=== PATIENT | male | born 1945 | race Caucasian/White ===

== ENCOUNTER 2019-06-14 09:16 | Inpatient (IN) ==
[2019-06-14] MEDS ORDERED: Ipratropium/Albuterol Neb 3 ML IH PRN (11:22)
[2019-06-14] MEDS: Furosemide 40 MG TABLET PO SCH ×2 (12:29→15:35)
[2019-06-14] MEDS: Gabapentin 300 MG CAPSULE PO SCH ×3 (12:30→20:23)
[2019-06-14] MEDS: metOLazone 5 MG TABLET PO SCH (12:31)
[2019-06-14] MEDS: Metoprolol XL (24 HR) Succ 50 MG TAB.ER.24H PO SCH ×2 (12:34→20:23)
[2019-06-14] MEDS: Fenofibrate 54 MG TABLET PO SCH (12:34)
[2019-06-14] MEDS: tiZANidine 4 MG TABLET PO PRN (12:34)
[2019-06-14] MEDS: Lisinopril 20 MG TABLET PO SCH (20:23)
[2019-06-14] MEDS: Apixaban 5 MG TABLET PO SCH (20:23)
[2019-06-15 06:38] LABS: Hematocrit 41.7 % (37.5-50.1); Hemoglobin 13.3 g/dL (12.9-16.9); Mean Corpuscular HGB Conc 31.9 g/dL (31.6-35.5); Mean Corpuscular Hemoglobin 32.5 pg (28.0-33.3); Platelet Count 311 K/mcL (140-400); Red Blood Count 4.09 M/mcL (4.19-5.50); Red Cell Distribution Width 13.4 % (11.5-14.5); White Blood Count 9.2 K/mcL (4.3-11.1)
[2019-06-15 06:56] LABS: Calcium 9.8 mg/dL (8.6-10.3); Potassium 4.3 mEq/L (3.5-5.1)
[2019-06-15] MEDS: Fenofibrate 54 MG TABLET PO SCH (09:06)
[2019-06-15] MEDS: metOLazone 5 MG TABLET PO SCH (09:07)
[2019-06-15] MEDS: Cholecalciferol (D-3) 1,000 UNIT (25MCG) TABLET PO SCH (09:07)
[2019-06-15] MEDS: Lisinopril 20 MG TABLET PO SCH ×2 (09:08→19:59)
[2019-06-15] MEDS: Apixaban 5 MG TABLET PO SCH ×2 (09:08→19:59)
[2019-06-15] MEDS: Gabapentin 300 MG CAPSULE PO SCH ×3 (09:08→19:58)
[2019-06-15] MEDS: Metoprolol XL (24 HR) Succ 50 MG TAB.ER.24H PO SCH ×2 (09:08→19:58)
[2019-06-15] MEDS: Furosemide 40 MG TABLET PO SCH ×2 (09:08→17:59)
[2019-06-16] MEDS: tiZANidine 4 MG TABLET PO PRN ×2 (02:54→14:03)
[2019-06-16] MEDS: metOLazone 5 MG TABLET PO SCH (08:55)
[2019-06-16] MEDS: Metoprolol XL (24 HR) Succ 50 MG TAB.ER.24H PO SCH ×2 (08:55→19:53)
[2019-06-16] MEDS: Lisinopril 20 MG TABLET PO SCH ×2 (08:56→19:53)
[2019-06-16] MEDS: Fenofibrate 54 MG TABLET PO SCH (08:56)
[2019-06-16] MEDS: Gabapentin 300 MG CAPSULE PO SCH ×3 (08:56→19:53)
[2019-06-16] MEDS: Apixaban 5 MG TABLET PO SCH ×2 (08:56→19:53)
[2019-06-16] MEDS: Cholecalciferol (D-3) 1,000 UNIT (25MCG) TABLET PO SCH (08:57)
[2019-06-16] MEDS: Furosemide 40 MG TABLET PO SCH ×2 (08:57→16:40)
[2019-06-17] MEDS: tiZANidine 4 MG TABLET PO PRN ×2 (03:35→21:15)
[2019-06-17] MEDS: metOLazone 5 MG TABLET PO SCH (05:59)
[2019-06-17] MEDS: Furosemide 40 MG TABLET PO SCH ×2 (09:53→16:21)
[2019-06-17] MEDS: Fenofibrate 54 MG TABLET PO SCH (09:53)
[2019-06-17] MEDS: Apixaban 5 MG TABLET PO SCH ×2 (09:53→21:15)
[2019-06-17] MEDS: Gabapentin 300 MG CAPSULE PO SCH ×3 (09:53→21:15)
[2019-06-17] MEDS: Metoprolol XL (24 HR) Succ 50 MG TAB.ER.24H PO SCH ×2 (09:54→21:15)
[2019-06-17] MEDS: Cholecalciferol (D-3) 1,000 UNIT (25MCG) TABLET PO SCH (09:55)
[2019-06-17 10:20] LABS: Bilirubin,Urine Negative (Negative); Blood,Urine Negative (Negative); Clarity,Urine Clear (Clear); Color,Urine Yellow (Yellow); Glucose,Urine (UA) Normal (Normal); Ketones,Urine Negative (Negative); Leukocyte Esterase,Urine Negative (Negative); Nitrite,Urine Negative (Negative); PH,Urine 5.5 pH Units (5.0-8.0); Protein,Urine Negative (Neg-Trace); Specific Gravity,Urine 1.025 (1.010-1.025); Urobilinogen,Urine Normal (Normal)
[2019-06-17] MEDS: Lisinopril 20 MG TABLET PO SCH ×2 (11:55→21:15)
[2019-06-18] MEDS ORDERED: *HR* OxyCODONE Immed Rel 5 MG TABLET PO ONE (03:20)
[2019-06-18 05:06] LABS: Hematocrit 40.5 % (37.5-50.1); Hemoglobin 12.9 g/dL (12.9-16.9); Mean Corpuscular HGB Conc 31.9 g/dL (31.6-35.5); Mean Corpuscular Hemoglobin 32.8 pg (28.0-33.3); Mean Corpuscular Volume 103.1 fL (83.0-100.0); Mean Platelet Volume 9.8 fL (9.4-12.4); Platelet Count 296 K/mcL (140-400); Red Blood Count 3.93 M/mcL (4.19-5.50); Red Cell Distribution Width 13.4 % (11.5-14.5); White Blood Count 10.9 K/mcL (4.3-11.1)
[2019-06-18] MEDS: metOLazone 5 MG TABLET PO SCH (06:45)
[2019-06-18] MEDS: Metoprolol XL (24 HR) Succ 50 MG TAB.ER.24H PO SCH ×2 (07:48→20:19)
[2019-06-18] MEDS: Furosemide 40 MG TABLET PO SCH ×2 (07:48→16:53)
[2019-06-18] MEDS: Fenofibrate 54 MG TABLET PO SCH (07:48)
[2019-06-18] MEDS: Apixaban 5 MG TABLET PO SCH ×2 (07:48→20:19)
[2019-06-18] MEDS: Gabapentin 300 MG CAPSULE PO SCH ×3 (07:48→20:19)
[2019-06-18] MEDS: Lisinopril 20 MG TABLET PO SCH (07:49)
[2019-06-18] MEDS: Cholecalciferol (D-3) 1,000 UNIT (25MCG) TABLET PO SCH (07:49)
[2019-06-18 07:53] LABS: Calcium 9.8 mg/dL (8.6-10.3); Potassium 4.2 mEq/L (3.5-5.1)
[2019-06-19] MEDS: metOLazone 5 MG TABLET PO SCH (06:09)
[2019-06-19 06:51] LABS: Hematocrit 41.9 % (37.5-50.1); Hemoglobin 13.6 g/dL (12.9-16.9); Mean Corpuscular HGB Conc 32.5 g/dL (31.6-35.5); Mean Corpuscular Hemoglobin 33.3 pg (28.0-33.3); Mean Corpuscular Volume 102.4 fL (83.0-100.0); Mean Platelet Volume 9.9 fL (9.4-12.4); Platelet Count 292 K/mcL (140-400); Red Blood Count 4.09 M/mcL (4.19-5.50); Red Cell Distribution Width 13.5 % (11.5-14.5); White Blood Count 9.4 K/mcL (4.3-11.1)
[2019-06-19 07:14] LABS: Calcium 9.9 mg/dL (8.6-10.3); Potassium 4.2 mEq/L (3.5-5.1)
[2019-06-19] MEDS: Gabapentin 300 MG CAPSULE PO SCH ×3 (09:39→21:49)
[2019-06-19] MEDS: Apixaban 5 MG TABLET PO SCH ×2 (09:39→21:49)
[2019-06-19] MEDS: Cholecalciferol (D-3) 1,000 UNIT (25MCG) TABLET PO SCH (09:39)
[2019-06-19] MEDS: tiZANidine 4 MG TABLET PO PRN (09:39)
[2019-06-19] MEDS: Metoprolol XL (24 HR) Succ 50 MG TAB.ER.24H PO SCH ×2 (09:39→21:49)
[2019-06-19] MEDS: Furosemide 40 MG TABLET PO SCH (09:39)
[2019-06-19] MEDS: Fenofibrate 54 MG TABLET PO SCH (09:39)
[2019-06-19] MEDS: acetaZOLAMIDE 250 MG TABLET PO SCH ×2 (12:21→21:49)
[2019-06-20 06:00] LABS: Calcium 9.7 mg/dL (8.6-10.3); Potassium 3.9 mEq/L (3.5-5.1)
[2019-06-20] MEDS: Gabapentin 300 MG CAPSULE PO SCH ×3 (09:09→21:28)
[2019-06-20] MEDS: Fenofibrate 54 MG TABLET PO SCH (09:09)
[2019-06-20] MEDS: Apixaban 5 MG TABLET PO SCH ×2 (09:09→21:20)
[2019-06-20] MEDS: Cholecalciferol (D-3) 1,000 UNIT (25MCG) TABLET PO SCH (09:09)
[2019-06-20] MEDS: acetaZOLAMIDE 250 MG TABLET PO SCH ×2 (09:09→21:20)
[2019-06-20] MEDS: Metoprolol XL (24 HR) Succ 50 MG TAB.ER.24H PO SCH ×2 (09:09→21:20)
[2019-06-20] MEDS: Preparation H Ointment 30 GM TUBE RC SCH ×3 (10:07→21:21)
[2019-06-21] MEDS: acetaZOLAMIDE 250 MG TABLET PO SCH ×2 (08:08→21:56)
[2019-06-21] MEDS: Fenofibrate 54 MG TABLET PO SCH (08:08)
[2019-06-21] MEDS: Gabapentin 300 MG CAPSULE PO SCH ×3 (08:08→21:56)
[2019-06-21] MEDS: Apixaban 5 MG TABLET PO SCH ×2 (08:08→21:56)
[2019-06-21] MEDS: Metoprolol XL (24 HR) Succ 50 MG TAB.ER.24H PO SCH ×2 (08:09→21:56)
[2019-06-21] MEDS: Cholecalciferol (D-3) 1,000 UNIT (25MCG) TABLET PO SCH (08:09)
[2019-06-21] MEDS: Preparation H Ointment 30 GM TUBE RC SCH ×3 (08:11→21:58)
[2019-06-21 09:30] LABS: Hematocrit 41.5 % (37.5-50.1); Hemoglobin 13.1 g/dL (12.9-16.9); Mean Corpuscular HGB Conc 31.6 g/dL (31.6-35.5); Mean Corpuscular Hemoglobin 32.8 pg (28.0-33.3); Mean Platelet Volume 10.1 fL (9.4-12.4); Platelet Count 262 K/mcL (140-400); Red Blood Count 3.99 M/mcL (4.19-5.50); Red Cell Distribution Width 13.5 % (11.5-14.5); White Blood Count 8.8 K/mcL (4.3-11.1)
[2019-06-21 09:46] LABS: Calcium 9.8 mg/dL (8.6-10.3); Potassium 3.8 mEq/L (3.5-5.1)
[2019-06-21 21:38] LABS: Sodium, Urine 97.3 mEq/L
[2019-06-22] MEDS: acetaZOLAMIDE 250 MG TABLET PO SCH (08:14)
[2019-06-22] MEDS: Fenofibrate 54 MG TABLET PO SCH (08:14)
[2019-06-22] MEDS: Cholecalciferol (D-3) 1,000 UNIT (25MCG) TABLET PO SCH (08:15)
[2019-06-22] MEDS: Gabapentin 300 MG CAPSULE PO SCH ×3 (08:15→20:28)
[2019-06-22] MEDS: Preparation H Ointment 30 GM TUBE RC SCH ×3 (08:15→20:28)
[2019-06-22] MEDS: Apixaban 5 MG TABLET PO SCH ×2 (08:15→20:28)
[2019-06-22] MEDS: Metoprolol XL (24 HR) Succ 50 MG TAB.ER.24H PO SCH (08:15)
[2019-06-22] MEDS ORDERED: Furosemide 40 MG TABLET PO SCH (09:00)
[2019-06-22] MEDS ORDERED: 0.9 % Sodium Chloride 500 ML IVC ONE (09:23)
[2019-06-22 10:28] LABS: Hematocrit 44.8 % (37.5-50.1); Hemoglobin 13.9 g/dL (12.9-16.9); Mean Corpuscular Hemoglobin 32.7 pg (28.0-33.3); Mean Corpuscular Volume 105.4 fL (83.0-100.0); Mean Platelet Volume 9.7 fL (9.4-12.4); Platelet Count 254 K/mcL (140-400); Red Blood Count 4.25 M/mcL (4.19-5.50); Red Cell Distribution Width 13.4 % (11.5-14.5); White Blood Count 9.5 K/mcL (4.3-11.1)
[2019-06-22 10:48] LABS: Calcium 9.7 mg/dL (8.6-10.3); Potassium 3.8 mEq/L (3.5-5.1)
[2019-06-22 13:44] LABS: Adenovirus Not Detected (Not Detect); Bordetella Pertussis Not Detected (Not Detect); Chlamydophila pneumoniae Not Detected (Not Detect); Coronavirus 229E Not Detected (Not Detect); Coronavirus HKU1 Not Detected (Not Detect); Coronavirus NL63 Not Detected (Not Detect); Coronavirus OC43 Not Detected (Not Detect); Human Metapneumovirus Not Detected (Not Detect); Human Rhinovirus/Enterovirus Not Detected (Not Detect); Influenza A Subtype 2009 H1 Not Detected (Not Detect); Influenza B Not Detected (Not Detect); Mycoplasma pneumoniae Not Detected (Not Detect); Parainfluenza Virus 1 Not Detected (Not Detect); Parainfluenza Virus 2 Not Detected (Not Detect); Parainfluenza Virus 3 Not Detected (Not Detect); Parainfluenza Virus 4 Not Detected (Not Detect); Respiratory Syncytial Virus Not Detected (Not Detect)
[2019-06-23] MEDS: tiZANidine 4 MG TABLET PO PRN (05:07)
[2019-06-23 07:17] LABS: Hematocrit 40.6 % (37.5-50.1); Hemoglobin 12.6 g/dL (12.9-16.9); Mean Corpuscular Hemoglobin 32.1 pg (28.0-33.3); Mean Corpuscular Volume 103.6 fL (83.0-100.0); Mean Platelet Volume 10.3 fL (9.4-12.4); Platelet Count 213 K/mcL (140-400); Red Blood Count 3.92 M/mcL (4.19-5.50); Red Cell Distribution Width 13.3 % (11.5-14.5); White Blood Count 7.9 K/mcL (4.3-11.1)
[2019-06-23 07:27] LABS: Calcium 9.4 mg/dL (8.6-10.3); Potassium 4.1 mEq/L (3.5-5.1)
[2019-06-23] MEDS: Fenofibrate 54 MG TABLET PO SCH (08:23)
[2019-06-23] MEDS: Apixaban 5 MG TABLET PO SCH ×2 (08:23→20:23)
[2019-06-23] MEDS: Cholecalciferol (D-3) 1,000 UNIT (25MCG) TABLET PO SCH (08:23)
[2019-06-23] MEDS: Gabapentin 300 MG CAPSULE PO SCH ×3 (08:23→20:23)
[2019-06-23] MEDS: Metoprolol XL (24 HR) Succ 50 MG TAB.ER.24H PO SCH (08:24)
[2019-06-23] MEDS: Preparation H Ointment 30 GM TUBE RC SCH ×3 (12:02→20:26)
[2019-06-24] MEDS: Preparation H Ointment 30 GM TUBE RC SCH ×3 (09:00→23:20)
[2019-06-24] MEDS: Metoprolol XL (24 HR) Succ 50 MG TAB.ER.24H PO SCH (09:00)
[2019-06-24] MEDS: Cholecalciferol (D-3) 1,000 UNIT (25MCG) TABLET PO SCH (09:00)
[2019-06-24] MEDS: Fenofibrate 54 MG TABLET PO SCH (09:00)
[2019-06-24] MEDS: Apixaban 5 MG TABLET PO SCH ×2 (09:00→20:09)
[2019-06-24] MEDS: Gabapentin 300 MG CAPSULE PO SCH ×3 (09:00→20:09)
[2019-06-24] MEDS: tiZANidine 4 MG TABLET PO PRN (17:52)
[2019-06-25] MEDS: Acetaminophen 325 MG TABLET PO PRN (06:33)
[2019-06-25] MEDS: Fenofibrate 54 MG TABLET PO SCH (08:56)
[2019-06-25] MEDS: Apixaban 5 MG TABLET PO SCH ×2 (08:56→20:29)
[2019-06-25] MEDS: tiZANidine 4 MG TABLET PO PRN (08:57)
[2019-06-25] MEDS: Metoprolol XL (24 HR) Succ 50 MG TAB.ER.24H PO SCH (08:57)
[2019-06-25] MEDS: Gabapentin 300 MG CAPSULE PO SCH ×3 (08:57→20:29)
[2019-06-25] MEDS: Cholecalciferol (D-3) 1,000 UNIT (25MCG) TABLET PO SCH (08:57)
[2019-06-25] MEDS: Preparation H Ointment 30 GM TUBE RC SCH ×2 (09:07→15:35)
[2019-06-25] MEDS: Furosemide 40 MG TABLET PO SCH (11:13)
[2019-06-26] MEDS: Preparation H Ointment 30 GM TUBE RC SCH ×3 (00:16→16:10)
[2019-06-26] MEDS: Acetaminophen 325 MG TABLET PO PRN (00:25)
[2019-06-26 05:41] LABS: Hematocrit 40.7 % (37.5-50.1); Hemoglobin 12.8 g/dL (12.9-16.9); Mean Corpuscular HGB Conc 31.4 g/dL (31.6-35.5); Mean Corpuscular Hemoglobin 32.6 pg (28.0-33.3); Mean Corpuscular Volume 103.6 fL (83.0-100.0); Mean Platelet Volume 10.3 fL (9.4-12.4); Platelet Count 160 K/mcL (140-400); Red Blood Count 3.93 M/mcL (4.19-5.50); Red Cell Distribution Width 13.2 % (11.5-14.5); White Blood Count 7.8 K/mcL (4.3-11.1)
[2019-06-26 06:03] LABS: Calcium 9.3 mg/dL (8.6-10.3); Potassium 4.1 mEq/L (3.5-5.1)
[2019-06-26] MEDS: Metoprolol XL (24 HR) Succ 50 MG TAB.ER.24H PO SCH (09:07)
[2019-06-26] MEDS: Fenofibrate 54 MG TABLET PO SCH (09:07)
[2019-06-26] MEDS: Apixaban 5 MG TABLET PO SCH ×2 (09:08→19:58)
[2019-06-26] MEDS: Gabapentin 300 MG CAPSULE PO SCH ×3 (09:08→19:58)
[2019-06-26] MEDS: Furosemide 40 MG TABLET PO SCH (09:08)
[2019-06-26] MEDS: Cholecalciferol (D-3) 1,000 UNIT (25MCG) TABLET PO SCH (09:09)
[2019-06-26] MEDS: tiZANidine 4 MG TABLET PO PRN (20:02)
[2019-06-27] MEDS: Preparation H Ointment 30 GM TUBE RC SCH ×4 (00:32→21:31)
[2019-06-27] MEDS: Cholecalciferol (D-3) 1,000 UNIT (25MCG) TABLET PO SCH (09:55)
[2019-06-27] MEDS: Apixaban 5 MG TABLET PO SCH ×2 (09:55→21:31)
[2019-06-27] MEDS: Gabapentin 300 MG CAPSULE PO SCH ×3 (09:55→21:31)
[2019-06-27] MEDS: Furosemide 40 MG TABLET PO SCH (09:55)
[2019-06-27] MEDS: Metoprolol XL (24 HR) Succ 50 MG TAB.ER.24H PO SCH (09:55)
[2019-06-27] MEDS: Fenofibrate 54 MG TABLET PO SCH (09:56)
[2019-06-27] MEDS: tiZANidine 4 MG TABLET PO PRN ×2 (15:36→23:37)
[2019-06-27] MEDS: Acetaminophen 325 MG TABLET PO PRN (21:31)
[2019-06-28] MEDS: Furosemide 40 MG TABLET PO SCH (08:30)
[2019-06-28] MEDS: Apixaban 5 MG TABLET PO SCH ×2 (08:30→20:43)
[2019-06-28] MEDS: Metoprolol XL (24 HR) Succ 50 MG TAB.ER.24H PO SCH (08:30)
[2019-06-28] MEDS: Cholecalciferol (D-3) 1,000 UNIT (25MCG) TABLET PO SCH (08:30)
[2019-06-28] MEDS: Fenofibrate 54 MG TABLET PO SCH (08:30)
[2019-06-28] MEDS: Gabapentin 300 MG CAPSULE PO SCH ×3 (08:30→20:43)
[2019-06-28] MEDS: Preparation H Ointment 30 GM TUBE RC SCH ×2 (08:31→15:05)
[2019-06-28] MEDS: tiZANidine 4 MG TABLET PO PRN (20:44)
[2019-06-29] MEDS: Acetaminophen 325 MG TABLET PO PRN (03:27)
[2019-06-29] MEDS: Preparation H Ointment 30 GM TUBE RC SCH ×4 (04:00→20:59)
[2019-06-29 07:01] LABS: Hematocrit 40.8 % (37.5-50.1); Mean Corpuscular HGB Conc 31.9 g/dL (31.6-35.5); Mean Corpuscular Hemoglobin 32.7 pg (28.0-33.3); Mean Corpuscular Volume 102.8 fL (83.0-100.0); Mean Platelet Volume 10.4 fL (9.4-12.4); Platelet Count 152 K/mcL (140-400); Red Blood Count 3.97 M/mcL (4.19-5.50); Red Cell Distribution Width 13.5 % (11.5-14.5); White Blood Count 7.5 K/mcL (4.3-11.1)
[2019-06-29 07:45] LABS: Calcium 9.6 mg/dL (8.6-10.3); Potassium 3.9 mEq/L (3.5-5.1)
[2019-06-29] MEDS: tiZANidine 4 MG TABLET PO PRN (08:44)
[2019-06-29] MEDS: Gabapentin 300 MG CAPSULE PO SCH ×3 (08:44→20:58)
[2019-06-29] MEDS: Metoprolol XL (24 HR) Succ 50 MG TAB.ER.24H PO SCH (08:44)
[2019-06-29] MEDS: Apixaban 5 MG TABLET PO SCH ×2 (08:44→20:58)
[2019-06-29] MEDS: Cholecalciferol (D-3) 1,000 UNIT (25MCG) TABLET PO SCH (08:44)
[2019-06-29] MEDS: Fenofibrate 54 MG TABLET PO SCH (08:45)
[2019-06-29] MEDS ORDERED: Furosemide 20 MG TABLET PO ONE (08:55)
[2019-06-29] MEDS ORDERED: Furosemide 40 MG TABLET PO SCH (09:00)
[2019-06-30] MEDS: tiZANidine 4 MG TABLET PO PRN (01:20)
[2019-06-30] MEDS: Fenofibrate 54 MG TABLET PO SCH (09:23)
[2019-06-30] MEDS: Furosemide 20 MG TABLET PO SCH (09:24)
[2019-06-30] MEDS: Metoprolol XL (24 HR) Succ 50 MG TAB.ER.24H PO SCH (09:24)
[2019-06-30] MEDS: Cholecalciferol (D-3) 1,000 UNIT (25MCG) TABLET PO SCH (09:24)
[2019-06-30] MEDS: Gabapentin 300 MG CAPSULE PO SCH ×3 (09:24→20:51)
[2019-06-30] MEDS: Apixaban 5 MG TABLET PO SCH (11:53)
[2019-06-30] MEDS: Preparation H Ointment 30 GM TUBE RC SCH ×3 (11:54→20:51)
[2019-06-30] MEDS: Acetaminophen 325 MG TABLET PO PRN (14:11)
[2019-07-01] MEDS: Furosemide 20 MG TABLET PO SCH (08:27)
[2019-07-01] MEDS: Fenofibrate 54 MG TABLET PO SCH (08:27)
[2019-07-01] MEDS: Metoprolol XL (24 HR) Succ 50 MG TAB.ER.24H PO SCH (08:28)
[2019-07-01] MEDS: Preparation H Ointment 30 GM TUBE RC SCH ×3 (08:28→20:16)
[2019-07-01] MEDS: Cholecalciferol (D-3) 1,000 UNIT (25MCG) TABLET PO SCH (08:28)
[2019-07-01] MEDS: Gabapentin 300 MG CAPSULE PO SCH ×3 (08:28→20:16)
[2019-07-01] MEDS: tiZANidine 4 MG TABLET PO PRN (16:11)
[2019-07-01] MEDS: Acetaminophen 325 MG TABLET PO PRN (16:11)
[2019-07-02] MEDS: Acetaminophen 325 MG TABLET PO PRN ×2 (00:43→21:49)
[2019-07-02] MEDS: Metoprolol XL (24 HR) Succ 50 MG TAB.ER.24H PO SCH (07:51)
[2019-07-02] MEDS: Fenofibrate 54 MG TABLET PO SCH (07:51)
[2019-07-02] MEDS: Furosemide 20 MG TABLET PO SCH (07:52)
[2019-07-02] MEDS: Cholecalciferol (D-3) 1,000 UNIT (25MCG) TABLET PO SCH (07:52)
[2019-07-02] MEDS: Gabapentin 300 MG CAPSULE PO SCH ×3 (07:52→21:50)
[2019-07-02] MEDS: Preparation H Ointment 30 GM TUBE RC SCH ×3 (17:19→21:50)
[2019-07-02 18:02] VITALS: BP 126/62
[2019-07-02] MEDS: tiZANidine 4 MG TABLET PO PRN (21:50)
== END 2019-07-03 05:30 | disposition short-term general hospital (02) | DRG 945 ==
LOC: INPPIK 09:33
PROVIDERS: ADMIT Family Medicine; ATTEND Family Medicine

== ENCOUNTER 2019-07-09 16:11 | Inpatient (IN) ==
[2019-07-09] MEDS ORDERED: Preparation H Ointment 30 GM TUBE RC PRN (18:12)
[2019-07-09] MEDS ORDERED: Ipratropium/Albuterol Neb 3 ML IH PRN (19:25)
[2019-07-09] MEDS: Gabapentin 300 MG CAPSULE PO SCH (20:13)
[2019-07-09] MEDS: Apixaban 5 MG TABLET PO SCH (20:13)
[2019-07-09] MEDS: Metoprolol XL (24 HR) Succ 50 MG TAB.ER.24H PO SCH (20:13)
[2019-07-09] MEDS: Lisinopril 20 MG TABLET PO SCH (20:13)
[2019-07-09] MEDS: *HR* OxyCODONE/APAP 5/325 TABLET PO PRN (20:13)
[2019-07-10 07:16] LABS: Basophils % 0.4 %; Eosinophils # 0.4 K/mcL (0.0-0.6); Eosinophils % 4.3 %; Hematocrit 29.3 % (37.5-50.1); Hemoglobin 9.2 g/dL (12.9-16.9); Immature Granulocytes % 0.6 % (0-4); Lymphocytes # 0.7 K/mcL (0.6-4.6); Lymphocytes % 7.7 %; Mean Corpuscular HGB Conc 31.4 g/dL (31.6-35.5); Mean Corpuscular Hemoglobin 32.4 pg (28.0-33.3); Mean Corpuscular Volume 103.2 fL (83.0-100.0); Mean Platelet Volume 9.5 fL (9.4-12.4); Monocytes # 0.5 K/mcL (0.0-1.3); Monocytes % 4.7 %; Neutrophils # 7.8 K/mcL (1.6-8.9); Platelet Count 304 K/mcL (140-400); Red Blood Count 2.84 M/mcL (4.19-5.50); Red Cell Distribution Width 14.2 % (11.5-14.5); Segmented Neutrophils % 82.3 %; White Blood Count 9.5 K/mcL (4.3-11.1)
[2019-07-10 07:46] LABS: Activated Partial Thrombo Time 31.4 Seconds (26.0-36.0); INR 1.4; Prothrombin Time 15.6 Seconds (9.4-12.1)
[2019-07-10 07:52] LABS: eGFR For African Americans > 60 (> 60); eGFR For Non-African Americans 60 (> 60)
[2019-07-10] MEDS: Gabapentin 300 MG CAPSULE PO SCH ×3 (08:49→21:06)
[2019-07-10] MEDS: Furosemide 40 MG TABLET PO SCH ×2 (08:49→17:08)
[2019-07-10] MEDS: Lisinopril 20 MG TABLET PO SCH (08:50)
[2019-07-10] MEDS: Cholecalciferol (D-3) 1,000 UNIT (25MCG) TABLET PO SCH (08:50)
[2019-07-10] MEDS: metOLazone 5 MG TABLET PO SCH (08:50)
[2019-07-10] MEDS: Fenofibrate 54 MG TABLET PO SCH (08:51)
[2019-07-10] MEDS: Metoprolol XL (24 HR) Succ 50 MG TAB.ER.24H PO SCH ×2 (08:51→21:06)
[2019-07-10] MEDS: Apixaban 5 MG TABLET PO SCH ×2 (08:51→21:07)
[2019-07-10] MEDS ORDERED: Preparation H Ointment 30 GM TUBE RC PRN (13:59)
[2019-07-11] MEDS: metOLazone 5 MG TABLET PO SCH (09:09)
[2019-07-11] MEDS: *HR* OxyCODONE/APAP 5/325 TABLET PO PRN (10:19)
[2019-07-11] MEDS: Cholecalciferol (D-3) 1,000 UNIT (25MCG) TABLET PO SCH (10:20)
[2019-07-11] MEDS: Furosemide 40 MG TABLET PO SCH ×2 (10:20→18:06)
[2019-07-11] MEDS: Fenofibrate 54 MG TABLET PO SCH (10:21)
[2019-07-11] MEDS: Gabapentin 300 MG CAPSULE PO SCH ×3 (10:21→20:33)
[2019-07-11] MEDS: Lisinopril 20 MG TABLET PO SCH (10:21)
[2019-07-11] MEDS: Metoprolol XL (24 HR) Succ 50 MG TAB.ER.24H PO SCH ×2 (10:21→20:34)
[2019-07-11] MEDS: Apixaban 5 MG TABLET PO SCH ×2 (10:23→20:34)
[2019-07-12] MEDS: Cholecalciferol (D-3) 1,000 UNIT (25MCG) TABLET PO SCH (10:35)
[2019-07-12] MEDS: Gabapentin 300 MG CAPSULE PO SCH ×3 (10:35→20:28)
[2019-07-12] MEDS: Furosemide 40 MG TABLET PO SCH ×3 (10:36→16:22)
[2019-07-12] MEDS: Metoprolol XL (24 HR) Succ 50 MG TAB.ER.24H PO SCH ×2 (10:36→20:28)
[2019-07-12] MEDS: Lisinopril 20 MG TABLET PO SCH (10:36)
[2019-07-12] MEDS: Fenofibrate 54 MG TABLET PO SCH (10:36)
[2019-07-12] MEDS: Apixaban 5 MG TABLET PO SCH ×2 (10:36→20:28)
[2019-07-12] MEDS: metOLazone 5 MG TABLET PO SCH (10:39)
[2019-07-13 05:44] LABS: Hematocrit 30.4 % (37.5-50.1); Hemoglobin 9.4 g/dL (12.9-16.9); Mean Corpuscular HGB Conc 30.9 g/dL (31.6-35.5); Mean Corpuscular Hemoglobin 31.8 pg (28.0-33.3); Mean Corpuscular Volume 102.7 fL (83.0-100.0); Mean Platelet Volume 8.8 fL (9.4-12.4); Platelet Count 378 K/mcL (140-400); Red Blood Count 2.96 M/mcL (4.19-5.50); Red Cell Distribution Width 14.1 % (11.5-14.5); White Blood Count 10.3 K/mcL (4.3-11.1)
[2019-07-13 06:12] LABS: Potassium 3.6 mEq/L (3.5-5.1)
[2019-07-13] MEDS: Gabapentin 300 MG CAPSULE PO SCH ×3 (09:43→20:01)
[2019-07-13] MEDS: Cholecalciferol (D-3) 1,000 UNIT (25MCG) TABLET PO SCH (09:43)
[2019-07-13] MEDS: Fenofibrate 54 MG TABLET PO SCH (09:43)
[2019-07-13] MEDS: Furosemide 40 MG TABLET PO SCH ×2 (09:44→18:32)
[2019-07-13] MEDS: Lisinopril 20 MG TABLET PO SCH (09:44)
[2019-07-13] MEDS: Metoprolol XL (24 HR) Succ 50 MG TAB.ER.24H PO SCH ×2 (09:44→20:01)
[2019-07-13] MEDS: Apixaban 5 MG TABLET PO SCH ×2 (09:44→20:01)
[2019-07-13] MEDS: metOLazone 5 MG TABLET PO SCH (09:53)
[2019-07-14] MEDS: Metoprolol XL (24 HR) Succ 50 MG TAB.ER.24H PO SCH ×2 (08:20→20:02)
[2019-07-14] MEDS: Gabapentin 300 MG CAPSULE PO SCH ×3 (08:20→20:01)
[2019-07-14] MEDS: Fenofibrate 54 MG TABLET PO SCH (08:21)
[2019-07-14] MEDS: metOLazone 5 MG TABLET PO SCH (08:22)
[2019-07-14] MEDS: Cholecalciferol (D-3) 1,000 UNIT (25MCG) TABLET PO SCH (08:22)
[2019-07-14] MEDS: Lisinopril 20 MG TABLET PO SCH (08:22)
[2019-07-14] MEDS: Furosemide 40 MG TABLET PO SCH (08:22)
[2019-07-14] MEDS: Apixaban 5 MG TABLET PO SCH ×2 (08:24→20:02)
[2019-07-14 11:16] LABS: Hematocrit 29.4 % (37.5-50.1); Hemoglobin 9.2 g/dL (12.9-16.9); Mean Corpuscular HGB Conc 31.3 g/dL (31.6-35.5); Mean Corpuscular Hemoglobin 32.2 pg (28.0-33.3); Mean Corpuscular Volume 102.8 fL (83.0-100.0); Mean Platelet Volume 8.7 fL (9.4-12.4); Platelet Count 426 K/mcL (140-400); Red Blood Count 2.86 M/mcL (4.19-5.50); White Blood Count 10.2 K/mcL (4.3-11.1)
[2019-07-14] MEDS: 0.9 % Sodium Chloride 1,000 ML IVC SCH ×2 (12:03→20:02)
[2019-07-14 12:40] LABS: Potassium 3.6 mEq/L (3.5-5.1)
[2019-07-14] MEDS: *HR* OxyCODONE/APAP 5/325 TABLET PO PRN (14:37)
[2019-07-15] MEDS: 0.9 % Sodium Chloride 1,000 ML IVC SCH (06:12)
[2019-07-15 09:46] LABS: Hematocrit 30.5 % (37.5-50.1); Hemoglobin 9.5 g/dL (12.9-16.9); Mean Corpuscular HGB Conc 31.1 g/dL (31.6-35.5); Mean Corpuscular Hemoglobin 32.1 pg (28.0-33.3); Mean Platelet Volume 9.3 fL (9.4-12.4); Platelet Count 429 K/mcL (140-400); Red Blood Count 2.96 M/mcL (4.19-5.50); Red Cell Distribution Width 13.8 % (11.5-14.5)
[2019-07-15 10:05] LABS: Potassium 3.5 mEq/L (3.5-5.1)
[2019-07-15] MEDS: Gabapentin 300 MG CAPSULE PO SCH ×3 (11:01→20:34)
[2019-07-15] MEDS: Fenofibrate 54 MG TABLET PO SCH (11:01)
[2019-07-15] MEDS: Cholecalciferol (D-3) 1,000 UNIT (25MCG) TABLET PO SCH (11:01)
[2019-07-15] MEDS: Apixaban 5 MG TABLET PO SCH ×2 (11:01→20:34)
[2019-07-15] MEDS: Metoprolol XL (24 HR) Succ 50 MG TAB.ER.24H PO SCH ×2 (11:02→20:34)
[2019-07-16 06:33] LABS: Hemoglobin 9.4 g/dL (12.9-16.9); Mean Corpuscular HGB Conc 29.4 g/dL (31.6-35.5); Mean Corpuscular Hemoglobin 31.5 pg (28.0-33.3); Mean Corpuscular Volume 107.4 fL (83.0-100.0); Mean Platelet Volume 9.2 fL (9.4-12.4); Platelet Count 428 K/mcL (140-400); Red Blood Count 2.98 M/mcL (4.19-5.50); Red Cell Distribution Width 13.9 % (11.5-14.5)
[2019-07-16 06:48] LABS: BUN/Creatinine Ratio 22 (6-26); Blood Urea Nitrogen 30 mg/dL (8-23); Calcium 9.2 mg/dL (8.6-10.3); Carbon Dioxide 40 mEq/L (23-29); Chloride 100 mEq/L (98-107); Glucose 97 mg/dL (70-105); Osmolality,Calculated 304 (280-300); Sodium 144 mEq/L (136-145); eGFR For African Americans > 60 (> 60); eGFR For Non-African Americans 50 (> 60)
[2019-07-16] MEDS: Cholecalciferol (D-3) 1,000 UNIT (25MCG) TABLET PO SCH (09:04)
[2019-07-16] MEDS: Gabapentin 300 MG CAPSULE PO SCH ×3 (09:04→19:57)
[2019-07-16] MEDS: *HR* OxyCODONE/APAP 5/325 TABLET PO PRN ×2 (09:04→18:52)
[2019-07-16] MEDS: Apixaban 5 MG TABLET PO SCH ×2 (09:04→19:57)
[2019-07-16] MEDS: Metoprolol XL (24 HR) Succ 50 MG TAB.ER.24H PO SCH ×2 (09:04→20:00)
[2019-07-16] MEDS: Fenofibrate 54 MG TABLET PO SCH (09:04)
[2019-07-16] MEDS: acetaZOLAMIDE 250 MG TABLET PO SCH ×2 (09:08→19:57)
[2019-07-17] MEDS: Fenofibrate 54 MG TABLET PO SCH (08:01)
[2019-07-17] MEDS: Cholecalciferol (D-3) 1,000 UNIT (25MCG) TABLET PO SCH (08:01)
[2019-07-17] MEDS: Gabapentin 300 MG CAPSULE PO SCH ×3 (08:02→19:59)
[2019-07-17] MEDS: Apixaban 5 MG TABLET PO SCH ×2 (08:03→20:00)
[2019-07-17] MEDS: acetaZOLAMIDE 250 MG TABLET PO SCH ×2 (08:04→19:59)
[2019-07-17] MEDS: Metoprolol XL (24 HR) Succ 50 MG TAB.ER.24H PO SCH ×2 (08:06→19:59)
[2019-07-17] MEDS: tiZANidine 4 MG TABLET PO PRN (08:17)
[2019-07-17] MEDS ORDERED: Furosemide 40 MG/4 ML VIAL IVP SCH (09:00)
[2019-07-17] MEDS: *HR* OxyCODONE/APAP 5/325 TABLET PO PRN (20:04)
[2019-07-18] MEDS: acetaZOLAMIDE 250 MG TABLET PO SCH ×2 (09:35→20:39)
[2019-07-18] MEDS: Gabapentin 300 MG CAPSULE PO SCH ×3 (09:35→20:38)
[2019-07-18] MEDS: Fenofibrate 54 MG TABLET PO SCH (09:35)
[2019-07-18] MEDS: Metoprolol XL (24 HR) Succ 50 MG TAB.ER.24H PO SCH ×2 (09:35→22:44)
[2019-07-18] MEDS: Cholecalciferol (D-3) 1,000 UNIT (25MCG) TABLET PO SCH (09:35)
[2019-07-18] MEDS: Apixaban 5 MG TABLET PO SCH ×2 (09:36→20:39)
[2019-07-18] MEDS: Furosemide 40 MG TABLET PO SCH (17:57)
[2019-07-18] MEDS: tiZANidine 4 MG TABLET PO PRN (18:05)
[2019-07-19 06:15] LABS: Hematocrit 30.6 % (37.5-50.1); Hemoglobin 9.2 g/dL (12.9-16.9); Mean Corpuscular HGB Conc 30.1 g/dL (31.6-35.5); Mean Corpuscular Hemoglobin 31.7 pg (28.0-33.3); Mean Corpuscular Volume 105.5 fL (83.0-100.0); Mean Platelet Volume 9.2 fL (9.4-12.4); Platelet Count 338 K/mcL (140-400); Red Cell Distribution Width 13.7 % (11.5-14.5); White Blood Count 7.2 K/mcL (4.3-11.1)
[2019-07-19 06:41] LABS: Calcium 9.4 mg/dL (8.6-10.3); Potassium 4.2 mEq/L (3.5-5.1)
[2019-07-19] MEDS: Fenofibrate 54 MG TABLET PO SCH (08:39)
[2019-07-19] MEDS: Gabapentin 300 MG CAPSULE PO SCH ×3 (08:40→19:57)
[2019-07-19] MEDS: acetaZOLAMIDE 250 MG TABLET PO SCH ×2 (08:41→19:57)
[2019-07-19] MEDS: Cholecalciferol (D-3) 1,000 UNIT (25MCG) TABLET PO SCH (08:41)
[2019-07-19] MEDS: Apixaban 5 MG TABLET PO SCH ×2 (08:44→19:58)
[2019-07-19] MEDS: Metoprolol XL (24 HR) Succ 50 MG TAB.ER.24H PO SCH ×2 (08:58→19:57)
[2019-07-19] MEDS: Furosemide 40 MG TABLET PO SCH ×2 (09:04→15:35)
[2019-07-19] MEDS: *HR* OxyCODONE/APAP 5/325 TABLET PO PRN (15:39)
[2019-07-20] MEDS: Fenofibrate 54 MG TABLET PO SCH (08:24)
[2019-07-20] MEDS: Cholecalciferol (D-3) 1,000 UNIT (25MCG) TABLET PO SCH (08:24)
[2019-07-20] MEDS: Apixaban 5 MG TABLET PO SCH ×2 (08:25→20:36)
[2019-07-20] MEDS: Furosemide 40 MG TABLET PO SCH ×2 (08:25→15:55)
[2019-07-20] MEDS: acetaZOLAMIDE 250 MG TABLET PO SCH ×2 (08:25→20:36)
[2019-07-20] MEDS: Metoprolol XL (24 HR) Succ 50 MG TAB.ER.24H PO SCH ×2 (08:25→20:36)
[2019-07-20] MEDS: Gabapentin 300 MG CAPSULE PO SCH ×3 (08:25→20:36)
[2019-07-21] MEDS: Gabapentin 300 MG CAPSULE PO SCH ×4 (07:46→20:01)
[2019-07-21] MEDS: Fenofibrate 54 MG TABLET PO SCH (07:46)
[2019-07-21] MEDS: acetaZOLAMIDE 250 MG TABLET PO SCH ×2 (07:46→20:02)
[2019-07-21] MEDS: Metoprolol XL (24 HR) Succ 50 MG TAB.ER.24H PO SCH ×2 (07:47→20:03)
[2019-07-21] MEDS: Apixaban 5 MG TABLET PO SCH ×2 (07:48→20:02)
[2019-07-21] MEDS: Furosemide 40 MG TABLET PO SCH ×2 (07:48→16:53)
[2019-07-21] MEDS: Cholecalciferol (D-3) 1,000 UNIT (25MCG) TABLET PO SCH (07:48)
[2019-07-21 08:09] LABS: Hematocrit 32.9 % (37.5-50.1); Mean Corpuscular HGB Conc 30.4 g/dL (31.6-35.5); Mean Corpuscular Hemoglobin 32.1 pg (28.0-33.3); Mean Corpuscular Volume 105.4 fL (83.0-100.0); Mean Platelet Volume 9.6 fL (9.4-12.4); Platelet Count 305 K/mcL (140-400); Red Blood Count 3.12 M/mcL (4.19-5.50); Red Cell Distribution Width 13.7 % (11.5-14.5); White Blood Count 8.3 K/mcL (4.3-11.1)
[2019-07-21 08:14] LABS: Calcium 9.3 mg/dL (8.6-10.3); Potassium 3.9 mEq/L (3.5-5.1)
[2019-07-22] MEDS: acetaZOLAMIDE 250 MG TABLET PO SCH (07:53)
[2019-07-22] MEDS: Gabapentin 300 MG CAPSULE PO SCH ×3 (07:53→20:40)
[2019-07-22] MEDS: Cholecalciferol (D-3) 1,000 UNIT (25MCG) TABLET PO SCH (07:54)
[2019-07-22] MEDS: Apixaban 5 MG TABLET PO SCH ×2 (07:54→20:40)
[2019-07-22] MEDS: Fenofibrate 54 MG TABLET PO SCH (07:54)
[2019-07-22] MEDS: Metoprolol XL (24 HR) Succ 50 MG TAB.ER.24H PO SCH ×2 (07:54→20:41)
[2019-07-22] MEDS: Furosemide 40 MG TABLET PO SCH ×2 (07:55→16:50)
[2019-07-23] MEDS: metOLazone 5 MG TABLET PO SCH (08:12)
[2019-07-23] MEDS: acetaZOLAMIDE 250 MG TABLET PO SCH (08:12)
[2019-07-23] MEDS: Fenofibrate 54 MG TABLET PO SCH (08:12)
[2019-07-23] MEDS: Gabapentin 300 MG CAPSULE PO SCH ×3 (08:13→20:27)
[2019-07-23] MEDS: Metoprolol XL (24 HR) Succ 50 MG TAB.ER.24H PO SCH ×2 (08:13→20:27)
[2019-07-23] MEDS: Cholecalciferol (D-3) 1,000 UNIT (25MCG) TABLET PO SCH (08:13)
[2019-07-23] MEDS: Apixaban 5 MG TABLET PO SCH ×2 (08:13→20:27)
[2019-07-23] MEDS: Furosemide 40 MG TABLET PO SCH ×2 (08:13→16:05)
[2019-07-23] MEDS: tiZANidine 4 MG TABLET PO PRN (20:32)
[2019-07-24] MEDS: Fenofibrate 54 MG TABLET PO SCH (08:21)
[2019-07-24] MEDS: Furosemide 40 MG TABLET PO SCH ×2 (08:22→16:04)
[2019-07-24] MEDS: Metoprolol XL (24 HR) Succ 50 MG TAB.ER.24H PO SCH ×2 (08:22→20:47)
[2019-07-24] MEDS: Gabapentin 300 MG CAPSULE PO SCH ×3 (08:22→20:48)
[2019-07-24] MEDS: metOLazone 5 MG TABLET PO SCH (08:22)
[2019-07-24] MEDS: Cholecalciferol (D-3) 1,000 UNIT (25MCG) TABLET PO SCH (08:22)
[2019-07-24] MEDS: acetaZOLAMIDE 250 MG TABLET PO SCH (08:22)
[2019-07-24] MEDS: Apixaban 5 MG TABLET PO SCH ×2 (08:23→20:47)
[2019-07-25 06:34] VITALS: BP 121/68
[2019-07-25] MEDS: metOLazone 5 MG TABLET PO SCH (08:48)
[2019-07-25] MEDS: Cholecalciferol (D-3) 1,000 UNIT (25MCG) TABLET PO SCH (08:48)
[2019-07-25] MEDS: Gabapentin 300 MG CAPSULE PO SCH (08:48)
[2019-07-25] MEDS: Fenofibrate 54 MG TABLET PO SCH (08:48)
[2019-07-25] MEDS: Apixaban 5 MG TABLET PO SCH (08:48)
[2019-07-25] MEDS: Furosemide 40 MG TABLET PO SCH (08:49)
[2019-07-25] MEDS: Metoprolol XL (24 HR) Succ 50 MG TAB.ER.24H PO SCH (08:49)
== END 2019-07-25 13:40 | disposition home health service (06) | DRG 291 ==
LOC: INPPIK 16:56
PROVIDERS: ADMIT Family Medicine; ATTEND Family Medicine

== ENCOUNTER 2020-08-10 22:42 | Observation (INO) ==
[2020-08-10 23:11] LABS: Bilirubin,Urine Negative (Negative); Blood,Urine Negative (Negative); Clarity,Urine Slightly Cloudy (Clear); Color,Urine Yellow (Yellow); Glucose,Urine (UA) Normal (Normal); Ketones,Urine Negative (Negative); Leukocyte Esterase,Urine Negative (Negative); Nitrite,Urine Negative (Negative); Protein,Urine Trace mg/dL (Neg-Trace); Specific Gravity,Urine 1.025 (1.010-1.025); Urobilinogen,Urine Normal (Normal)
[2020-08-10 23:18] LABS: Bacteria,Urine Many per hpf (None-Few); Hyaline Casts,Urine Few per lpf (None Seen); Mucus,Urine Few per lpf (None-Few)
[2020-08-10 23:19] LABS: Amorphous Sediment,Urine Moderate per hpf (None-Few); Basophils % 0.4 %; Eosinophils # 0.1 K/mcL (0.0-0.6); Eosinophils % 0.9 %; Hematocrit 45.9 % (37.5-50.1); Hemoglobin 14.7 g/dL (12.9-16.9); Immature Granulocytes % 0.3 % (0-4); Lymphocytes # 1.2 K/mcL (0.6-4.6); Lymphocytes % 12.1 %; Mean Corpuscular Hemoglobin 31.2 pg (28.0-33.3); Mean Corpuscular Volume 97.5 fL (83.0-100.0); Mean Platelet Volume 9.7 fL (9.4-12.4); Monocytes # 0.6 K/mcL (0.0-1.3); Monocytes % 6.2 %; Neutrophils # 7.8 K/mcL (1.6-8.9); Platelet Count 219 K/mcL (140-400); RBC,Urine 0-3 per hpf (0-3); Red Blood Count 4.71 M/mcL (4.19-5.50); Red Cell Distribution Width 14.4 % (11.5-14.5); Segmented Neutrophils % 80.1 %; WBC,Urine 0-3 per hpf (0-3); White Blood Count 9.8 K/mcL (4.3-11.1)
[2020-08-10 23:20] LABS: Squamous Epithelial Cell,Urine Few per hpf (None-Few)
[2020-08-10 23:39] LABS: Albumin 4.1 g/dL (3.5-5.7); Albumin/Globulin Ratio 1.3 (1.1-2.2); Bilirubin,Total 0.4 mg/dL (0.3-1.0); Calcium 9.6 mg/dL (8.6-10.3); Globulin 3.1 g/dL (2.4-3.5); Potassium 4.2 mEq/L (3.5-5.1); Total Protein 7.2 g/dL (6.4-8.9)
[2020-08-10 23:48] LABS: Troponin I 0.21 ng/mL (< 0.04)
[2020-08-10 23:53] LABS: Activated Partial Thrombo Time 33.2 Seconds (26.0-36.0); D-Dimer < 215 ng/mLFEU (0-500); INR 1.6; Prothrombin Time 18.7 Seconds (9.4-12.1)
[2020-08-11] MEDS ORDERED: Gabapentin 300 MG CAPSULE PO ONE (02:01)
[2020-08-11] MEDS ORDERED: Naloxone 0.4 MG/ML INJ IVP PRN (02:52)
[2020-08-11] MEDS ORDERED: Ipratropium/Albuterol Neb 3 ML IH PRN (02:52)
[2020-08-11] MEDS ORDERED: tiZANidine 4 MG TABLET PO PRN (02:52)
[2020-08-11 04:17] LABS: Basophils % 0.4 %; Eosinophils # 0.1 K/mcL (0.0-0.6); Eosinophils % 0.9 %; Hematocrit 47.3 % (37.5-50.1); Hemoglobin 15.2 g/dL (12.9-16.9); Immature Granulocytes % 0.3 % (0-4); Lymphocytes # 1.1 K/mcL (0.6-4.6); Lymphocytes % 12.6 %; Mean Corpuscular HGB Conc 32.1 g/dL (31.6-35.5); Mean Corpuscular Hemoglobin 31.5 pg (28.0-33.3); Mean Corpuscular Volume 98.1 fL (83.0-100.0); Mean Platelet Volume 9.8 fL (9.4-12.4); Monocytes # 0.4 K/mcL (0.0-1.3); Monocytes % 4.5 %; Neutrophils # 7.2 K/mcL (1.6-8.9); Platelet Count 203 K/mcL (140-400); Red Blood Count 4.82 M/mcL (4.19-5.50); Red Cell Distribution Width 14.3 % (11.5-14.5); Segmented Neutrophils % 81.3 %; White Blood Count 8.9 K/mcL (4.3-11.1)
[2020-08-11 04:30] LABS: Calcium 9.6 mg/dL (8.6-10.3); Potassium 4.1 mEq/L (3.5-5.1)
[2020-08-11] MEDS ORDERED: Furosemide 40 MG/4 ML VIAL IVP SCH (08:00)
[2020-08-11] MEDS ORDERED: Furosemide 80 MG in 0.9 % Sodium Chloride 50 ML IV SCH (08:00)
[2020-08-11] MEDS ORDERED: *HR* Heparin 5,000 UNIT/ML VIAL SQ SCH (08:30)
[2020-08-11] MEDS ORDERED: Metoprolol XL (24 HR) Succ 50 MG TAB.ER.24H PO SCH (09:00)
[2020-08-11] MEDS ORDERED: predniSONE 20 MG TABLET PO SCH (09:00)
[2020-08-11] MEDS ORDERED: Cyanocobalamin (B-12) 1,000 MCG TABLET PO SCH (09:00)
[2020-08-11] MEDS ORDERED: DilTIAZem CD (24hr) 180 MG CAP.ER.24H PO SCH (09:00)
[2020-08-11] MEDS ORDERED: cefTRIAXone 2,000 MG in 0.9 % Sodium Chloride Mini Bag 100 ML IVPB SCH (09:00)
[2020-08-11] MEDS ORDERED: Aspirin 81 MG TAB.CHEW PO SCH (09:00)
[2020-08-11] MEDS ORDERED: Fenofibrate 54 MG TABLET PO SCH (09:00)
[2020-08-11] MEDS: Furosemide 60 MG in 0.9 % Sodium Chloride 50 ML IVPB SCH ×2 (09:16→18:11)
[2020-08-11] MEDS: Gabapentin 300 MG CAPSULE PO SCH ×3 (09:22→19:29)
[2020-08-11] MEDS: Apixaban 5 MG TABLET PO SCH ×2 (09:22→19:29)
[2020-08-11] MEDS ORDERED: Budesonide/Formoterol 160/4.5 1 PUFF INH IH SCH (10:45)
[2020-08-11 15:54] LABS: Calcium 9.6 mg/dL (8.6-10.3); Potassium 4.2 mEq/L (3.5-5.1)
[2020-08-11 22:00] VITALS: BP 152/73
[2020-08-17] MEDS ORDERED: Ergocalciferol (VIT D2) 50,000 UNIT (1.25MG) CAP PO SCH (09:00)
== END 2020-08-11 22:02 | disposition short-term general hospital (02) ==
LOC: INPPIK 22:42 → EMEROOPIK 22:42 → INPPIK 08-11 02:30
PROVIDERS: ADMIT Family Medicine; ATTEND Family Medicine

== ENCOUNTER 2020-12-13 17:09 | Inpatient (IN) ==
[2020-12-16] MEDS ORDERED: Acetaminophen 650 MG RECTAL SUPP RC PRN (15:33)
[2020-12-16] MEDS: Levalbuterol Neb 0.63 MG/3 ML IH SCH ×2 (18:04→21:48)
[2020-12-16] MEDS: Ergocalciferol (VIT D2) 50,000 UNIT (1.25MG) CAP PO SCH (18:18)
[2020-12-16] MEDS: Lactobacillus 1 EACH CAP.SPRINK PO SCH (20:00)
[2020-12-16] MEDS: Gabapentin 300 MG CAPSULE PO SCH (20:01)
[2020-12-16] MEDS: Apixaban 5 MG TABLET PO SCH (20:01)
[2020-12-16] MEDS: metroNIDAZOLE 500 MG TABLET PO SCH (20:02)
[2020-12-16] MEDS: Budesonide/Formoterol 160/4.5 1 PUFF INH IH SCH (21:48)
[2020-12-17] MEDS: Levalbuterol Neb 0.63 MG/3 ML IH SCH ×4 (04:02→22:54)
[2020-12-17 08:20] LABS: Basophils % 0.4 %; Eosinophils # 0.2 K/mcL (0.0-0.6); Eosinophils % 1.7 %; Hematocrit 30.2 % (37.5-50.1); Hemoglobin 9.3 g/dL (12.9-16.9); Immature Granulocytes % 0.9 % (0-4); Lymphocytes % 9.8 %; Mean Corpuscular HGB Conc 30.8 g/dL (31.6-35.5); Mean Corpuscular Hemoglobin 32.6 pg (28.0-33.3); Mean Platelet Volume 10.4 fL (9.4-12.4); Monocytes # 0.6 K/mcL (0.0-1.3); Monocytes % 6.5 %; Neutrophils # 7.8 K/mcL (1.6-8.9); Platelet Count 286 K/mcL (140-400); Red Blood Count 2.85 M/mcL (4.19-5.50); Red Cell Distribution Width 15.2 % (11.5-14.5); Segmented Neutrophils % 80.7 %; White Blood Count 9.7 K/mcL (4.3-11.1)
[2020-12-17 08:21] LABS: INR 1.4; Prothrombin Time 16.4 Seconds (9.4-12.1)
[2020-12-17 08:24] LABS: Activated Partial Thrombo Time 31.3 Seconds (26.0-36.0)
[2020-12-17 08:29] LABS: eGFR For African Americans > 60 (> 60); eGFR For Non-African Americans > 60 (> 60)
[2020-12-17] MEDS: Gabapentin 300 MG CAPSULE PO SCH ×2 (08:40→20:05)
[2020-12-17] MEDS: Fenofibrate 54 MG TABLET PO SCH (08:40)
[2020-12-17] MEDS: Lactobacillus 1 EACH CAP.SPRINK PO SCH ×2 (08:40→20:05)
[2020-12-17] MEDS: metroNIDAZOLE 500 MG TABLET PO SCH ×3 (08:40→20:06)
[2020-12-17] MEDS: BuPROPion XL (24 HR) 150 MG TABLET PO SCH (08:41)
[2020-12-17] MEDS: Aspirin 81 MG TAB.CHEW PO SCH (08:41)
[2020-12-17] MEDS: Apixaban 5 MG TABLET PO SCH ×2 (08:41→20:06)
[2020-12-17] MEDS: Cyanocobalamin (B-12) 1,000 MCG TABLET PO SCH (08:41)
[2020-12-17] MEDS: DilTIAZem CD (24hr) 120 MG CAP.ER.24H PO SCH (08:41)
[2020-12-17] MEDS: Furosemide 40 MG TABLET PO SCH (08:41)
[2020-12-17] MEDS: Metoprolol XL (24 HR) Succ 50 MG TAB.ER.24H PO SCH (08:42)
[2020-12-17] MEDS: Budesonide/Formoterol 160/4.5 1 PUFF INH IH SCH ×2 (09:29→22:53)
[2020-12-18] MEDS: Levalbuterol Neb 0.63 MG/3 ML IH SCH ×4 (04:11→22:02)
[2020-12-18] MEDS: Cyanocobalamin (B-12) 1,000 MCG TABLET PO SCH (08:08)
[2020-12-18] MEDS: DilTIAZem CD (24hr) 120 MG CAP.ER.24H PO SCH (08:08)
[2020-12-18] MEDS: Fenofibrate 54 MG TABLET PO SCH (08:08)
[2020-12-18] MEDS: Gabapentin 300 MG CAPSULE PO SCH ×2 (08:08→20:12)
[2020-12-18] MEDS: metroNIDAZOLE 500 MG TABLET PO SCH ×3 (08:08→20:12)
[2020-12-18] MEDS: Apixaban 5 MG TABLET PO SCH ×2 (08:08→20:12)
[2020-12-18] MEDS: Aspirin 81 MG TAB.CHEW PO SCH (08:09)
[2020-12-18] MEDS: BuPROPion XL (24 HR) 150 MG TABLET PO SCH (08:09)
[2020-12-18] MEDS: Metoprolol XL (24 HR) Succ 50 MG TAB.ER.24H PO SCH (08:09)
[2020-12-18] MEDS: Furosemide 40 MG TABLET PO SCH (08:09)
[2020-12-18] MEDS: Lactobacillus 1 EACH CAP.SPRINK PO SCH ×2 (08:09→20:12)
[2020-12-18] MEDS: Budesonide/Formoterol 160/4.5 1 PUFF INH IH SCH ×2 (09:29→22:02)
[2020-12-19] MEDS: Levalbuterol Neb 0.63 MG/3 ML IH SCH ×4 (04:55→23:02)
[2020-12-19] MEDS: Aspirin 81 MG TAB.CHEW PO SCH (09:06)
[2020-12-19] MEDS: Cyanocobalamin (B-12) 1,000 MCG TABLET PO SCH (09:06)
[2020-12-19] MEDS: metroNIDAZOLE 500 MG TABLET PO SCH ×3 (09:06→21:36)
[2020-12-19] MEDS: Apixaban 5 MG TABLET PO SCH ×2 (09:06→21:35)
[2020-12-19] MEDS: Gabapentin 300 MG CAPSULE PO SCH ×2 (09:06→21:35)
[2020-12-19] MEDS: Metoprolol XL (24 HR) Succ 50 MG TAB.ER.24H PO SCH (09:06)
[2020-12-19] MEDS: Lactobacillus 1 EACH CAP.SPRINK PO SCH ×2 (09:06→21:36)
[2020-12-19] MEDS: BuPROPion XL (24 HR) 150 MG TABLET PO SCH (09:06)
[2020-12-19] MEDS: Fenofibrate 54 MG TABLET PO SCH (09:06)
[2020-12-19] MEDS: Furosemide 40 MG TABLET PO SCH (09:07)
[2020-12-19] MEDS: DilTIAZem CD (24hr) 120 MG CAP.ER.24H PO SCH (09:07)
[2020-12-19 09:10] LABS: Basophils # 0.1 K/mcL (0.0-0.2); Basophils % 0.4 %; Eosinophils # 0.2 K/mcL (0.0-0.6); Eosinophils % 1.5 %; Hematocrit 32.4 % (37.5-50.1); Hemoglobin 9.9 g/dL (12.9-16.9); Immature Granulocytes % 0.7 % (0-4); Lymphocytes # 0.9 K/mcL (0.6-4.6); Lymphocytes % 7.6 %; Mean Corpuscular HGB Conc 30.6 g/dL (31.6-35.5); Mean Corpuscular Hemoglobin 32.6 pg (28.0-33.3); Mean Corpuscular Volume 106.6 fL (83.0-100.0); Mean Platelet Volume 9.9 fL (9.4-12.4); Monocytes # 0.5 K/mcL (0.0-1.3); Monocytes % 4.6 %; Neutrophils # 9.9 K/mcL (1.6-8.9); Platelet Count 312 K/mcL (140-400); Red Blood Count 3.04 M/mcL (4.19-5.50); Red Cell Distribution Width 15.4 % (11.5-14.5); Segmented Neutrophils % 85.2 %; White Blood Count 11.6 K/mcL (4.3-11.1)
[2020-12-19 09:34] LABS: BUN/Creatinine Ratio 20 (6-26); Blood Urea Nitrogen 25 mg/dL (8-23); Calcium 8.9 mg/dL (8.6-10.3); Carbon Dioxide 36 mEq/L (23-29); Chloride 102 mEq/L (98-107); Glucose 113 mg/dL (70-105); Osmolality,Calculated 301 (280-300); Potassium 4.5 mEq/L (3.5-5.1); Sodium 143 mEq/L (136-145); eGFR For African Americans > 60 (> 60); eGFR For Non-African Americans 58 (> 60)
[2020-12-19] MEDS: Budesonide/Formoterol 160/4.5 1 PUFF INH IH SCH ×2 (10:46→23:02)
[2020-12-20] MEDS: Levalbuterol Neb 0.63 MG/3 ML IH SCH ×4 (04:34→21:50)
[2020-12-20] MEDS: Furosemide 40 MG TABLET PO SCH (08:24)
[2020-12-20] MEDS: Lactobacillus 1 EACH CAP.SPRINK PO SCH ×2 (08:24→21:04)
[2020-12-20] MEDS: Aspirin 81 MG TAB.CHEW PO SCH (08:24)
[2020-12-20] MEDS: Cyanocobalamin (B-12) 1,000 MCG TABLET PO SCH (08:24)
[2020-12-20] MEDS: Gabapentin 300 MG CAPSULE PO SCH ×2 (08:24→21:03)
[2020-12-20] MEDS: Apixaban 5 MG TABLET PO SCH ×2 (08:24→21:04)
[2020-12-20] MEDS: Fenofibrate 54 MG TABLET PO SCH (08:24)
[2020-12-20] MEDS: BuPROPion XL (24 HR) 150 MG TABLET PO SCH (08:24)
[2020-12-20] MEDS: Metoprolol XL (24 HR) Succ 50 MG TAB.ER.24H PO SCH (08:24)
[2020-12-20] MEDS: DilTIAZem CD (24hr) 120 MG CAP.ER.24H PO SCH (08:25)
[2020-12-20] MEDS: Budesonide/Formoterol 160/4.5 1 PUFF INH IH SCH ×2 (09:45→21:50)
[2020-12-20] MEDS: metroNIDAZOLE 500 MG TABLET PO SCH ×3 (09:56→21:03)
[2020-12-21] MEDS: Levalbuterol Neb 0.63 MG/3 ML IH SCH ×4 (03:52→21:00)
[2020-12-21] MEDS ORDERED: Piperacillin/Tazobactam 3.375 GM in 0.9 % Sodium Chloride Mini Bag 100 ML IVPB SCH (06:00)
[2020-12-21] MEDS: Metoprolol XL (24 HR) Succ 50 MG TAB.ER.24H PO SCH (08:00)
[2020-12-21] MEDS: Apixaban 5 MG TABLET PO SCH ×2 (08:00→21:52)
[2020-12-21] MEDS: Cyanocobalamin (B-12) 1,000 MCG TABLET PO SCH (08:00)
[2020-12-21] MEDS: Gabapentin 300 MG CAPSULE PO SCH ×2 (08:00→21:52)
[2020-12-21] MEDS: DilTIAZem CD (24hr) 120 MG CAP.ER.24H PO SCH (08:00)
[2020-12-21] MEDS: BuPROPion XL (24 HR) 150 MG TABLET PO SCH (08:00)
[2020-12-21] MEDS: Aspirin 81 MG TAB.CHEW PO SCH (08:00)
[2020-12-21] MEDS: Lactobacillus 1 EACH CAP.SPRINK PO SCH ×2 (08:00→21:52)
[2020-12-21] MEDS: Furosemide 40 MG TABLET PO SCH (08:01)
[2020-12-21] MEDS: Fenofibrate 54 MG TABLET PO SCH (08:01)
[2020-12-21 08:29] LABS: Basophils # 0.1 K/mcL (0.0-0.2); Basophils % 0.5 %; Eosinophils # 0.2 K/mcL (0.0-0.6); Eosinophils % 1.5 %; Hematocrit 30.4 % (37.5-50.1); Hemoglobin 9.1 g/dL (12.9-16.9); Immature Granulocytes % 0.5 % (0-4); Lymphocytes # 0.8 K/mcL (0.6-4.6); Lymphocytes % 8.2 %; Mean Corpuscular HGB Conc 29.9 g/dL (31.6-35.5); Mean Corpuscular Hemoglobin 31.7 pg (28.0-33.3); Mean Corpuscular Volume 105.9 fL (83.0-100.0); Monocytes # 0.5 K/mcL (0.0-1.3); Monocytes % 4.8 %; Neutrophils # 8.4 K/mcL (1.6-8.9); Platelet Count 264 K/mcL (140-400); Red Blood Count 2.87 M/mcL (4.19-5.50); Red Cell Distribution Width 15.1 % (11.5-14.5); Segmented Neutrophils % 84.5 %
[2020-12-21 08:47] LABS: Calcium 8.5 mg/dL (8.6-10.3); Potassium 4.9 mEq/L (3.5-5.1)
[2020-12-21] MEDS: Budesonide/Formoterol 160/4.5 1 PUFF INH IH SCH ×2 (08:57→20:54)
[2020-12-22] MEDS: Levalbuterol Neb 0.63 MG/3 ML IH SCH ×4 (03:55→22:13)
[2020-12-22] MEDS: Apixaban 5 MG TABLET PO SCH ×2 (07:49→21:55)
[2020-12-22] MEDS: BuPROPion XL (24 HR) 150 MG TABLET PO SCH (07:49)
[2020-12-22] MEDS: DilTIAZem CD (24hr) 120 MG CAP.ER.24H PO SCH (07:49)
[2020-12-22] MEDS: Lactobacillus 1 EACH CAP.SPRINK PO SCH ×2 (07:49→21:55)
[2020-12-22] MEDS: Cyanocobalamin (B-12) 1,000 MCG TABLET PO SCH (07:49)
[2020-12-22] MEDS: Aspirin 81 MG TAB.CHEW PO SCH (07:49)
[2020-12-22] MEDS: Furosemide 40 MG TABLET PO SCH (07:49)
[2020-12-22] MEDS: Fenofibrate 54 MG TABLET PO SCH (07:49)
[2020-12-22] MEDS: Gabapentin 300 MG CAPSULE PO SCH ×2 (07:49→21:55)
[2020-12-22] MEDS: Metoprolol XL (24 HR) Succ 50 MG TAB.ER.24H PO SCH (07:50)
[2020-12-22] MEDS: Budesonide/Formoterol 160/4.5 1 PUFF INH IH SCH ×2 (09:29→22:13)
[2020-12-23] MEDS: Levalbuterol Neb 0.63 MG/3 ML IH SCH ×4 (04:36→21:51)
[2020-12-23] MEDS: Fenofibrate 54 MG TABLET PO SCH (08:30)
[2020-12-23] MEDS: BuPROPion XL (24 HR) 150 MG TABLET PO SCH (08:30)
[2020-12-23] MEDS: Furosemide 40 MG TABLET PO SCH (08:30)
[2020-12-23] MEDS: DilTIAZem CD (24hr) 120 MG CAP.ER.24H PO SCH (08:30)
[2020-12-23] MEDS: Gabapentin 300 MG CAPSULE PO SCH ×2 (08:30→20:02)
[2020-12-23] MEDS: Lactobacillus 1 EACH CAP.SPRINK PO SCH ×2 (08:30→20:02)
[2020-12-23] MEDS: Aspirin 81 MG TAB.CHEW PO SCH (08:30)
[2020-12-23] MEDS: Cyanocobalamin (B-12) 1,000 MCG TABLET PO SCH (08:30)
[2020-12-23] MEDS: Apixaban 5 MG TABLET PO SCH ×2 (08:30→20:02)
[2020-12-23] MEDS: Metoprolol XL (24 HR) Succ 50 MG TAB.ER.24H PO SCH (08:31)
[2020-12-23] MEDS: Budesonide/Formoterol 160/4.5 1 PUFF INH IH SCH ×2 (09:28→21:43)
[2020-12-23] MEDS: Ergocalciferol (VIT D2) 50,000 UNIT (1.25MG) CAP PO SCH (16:40)
[2020-12-24] MEDS: Levalbuterol Neb 0.63 MG/3 ML IH SCH ×4 (04:27→21:19)
[2020-12-24] MEDS: Metoprolol XL (24 HR) Succ 50 MG TAB.ER.24H PO SCH (08:00)
[2020-12-24] MEDS: BuPROPion XL (24 HR) 150 MG TABLET PO SCH (08:00)
[2020-12-24] MEDS: Cyanocobalamin (B-12) 1,000 MCG TABLET PO SCH (08:00)
[2020-12-24] MEDS: Gabapentin 300 MG CAPSULE PO SCH ×2 (08:00→20:05)
[2020-12-24] MEDS: DilTIAZem CD (24hr) 120 MG CAP.ER.24H PO SCH (08:00)
[2020-12-24] MEDS: Apixaban 5 MG TABLET PO SCH ×2 (08:01→20:05)
[2020-12-24] MEDS: Fenofibrate 54 MG TABLET PO SCH (08:01)
[2020-12-24] MEDS: Lactobacillus 1 EACH CAP.SPRINK PO SCH ×2 (08:01→20:05)
[2020-12-24] MEDS: Furosemide 40 MG TABLET PO SCH (08:01)
[2020-12-24] MEDS: Aspirin 81 MG TAB.CHEW PO SCH (08:01)
[2020-12-24] MEDS: Budesonide/Formoterol 160/4.5 1 PUFF INH IH SCH ×2 (10:19→21:19)
[2020-12-25] MEDS: Levalbuterol Neb 0.63 MG/3 ML IH SCH ×4 (03:50→22:47)
[2020-12-25 07:51] LABS: Hematocrit 28.5 % (37.5-50.1); Hemoglobin 8.5 g/dL (12.9-16.9); Mean Corpuscular HGB Conc 29.8 g/dL (31.6-35.5); Mean Corpuscular Hemoglobin 31.8 pg (28.0-33.3); Mean Corpuscular Volume 106.7 fL (83.0-100.0); Mean Platelet Volume 9.7 fL (9.4-12.4); Platelet Count 246 K/mcL (140-400); Red Blood Count 2.67 M/mcL (4.19-5.50); Red Cell Distribution Width 14.6 % (11.5-14.5); White Blood Count 11.4 K/mcL (4.3-11.1)
[2020-12-25 08:30] LABS: Calcium 8.4 mg/dL (8.6-10.3); Potassium 4.9 mEq/L (3.5-5.1)
[2020-12-25] MEDS: Metoprolol XL (24 HR) Succ 50 MG TAB.ER.24H PO SCH (09:57)
[2020-12-25] MEDS: Apixaban 5 MG TABLET PO SCH ×2 (09:57→20:15)
[2020-12-25] MEDS: Aspirin 81 MG TAB.CHEW PO SCH (09:57)
[2020-12-25] MEDS: Cyanocobalamin (B-12) 1,000 MCG TABLET PO SCH (09:57)
[2020-12-25] MEDS: Fenofibrate 54 MG TABLET PO SCH (09:58)
[2020-12-25] MEDS: Gabapentin 300 MG CAPSULE PO SCH ×2 (09:58→20:16)
[2020-12-25] MEDS: DilTIAZem CD (24hr) 120 MG CAP.ER.24H PO SCH (09:58)
[2020-12-25] MEDS: Furosemide 40 MG TABLET PO SCH (09:58)
[2020-12-25] MEDS: BuPROPion XL (24 HR) 150 MG TABLET PO SCH (09:58)
[2020-12-25] MEDS: Lactobacillus 1 EACH CAP.SPRINK PO SCH ×2 (09:58→20:16)
[2020-12-25] MEDS: Budesonide/Formoterol 160/4.5 1 PUFF INH IH SCH ×2 (10:23→22:47)
[2020-12-26] MEDS: Levalbuterol Neb 0.63 MG/3 ML IH SCH ×4 (04:34→22:18)
[2020-12-26] MEDS: Lactobacillus 1 EACH CAP.SPRINK PO SCH ×2 (08:36→22:29)
[2020-12-26] MEDS: Aspirin 81 MG TAB.CHEW PO SCH (08:36)
[2020-12-26] MEDS: Furosemide 40 MG TABLET PO SCH (08:36)
[2020-12-26] MEDS: Metoprolol XL (24 HR) Succ 50 MG TAB.ER.24H PO SCH (08:36)
[2020-12-26] MEDS: Fenofibrate 54 MG TABLET PO SCH (08:37)
[2020-12-26] MEDS: Cyanocobalamin (B-12) 1,000 MCG TABLET PO SCH (08:37)
[2020-12-26] MEDS: BuPROPion XL (24 HR) 150 MG TABLET PO SCH (08:37)
[2020-12-26] MEDS: Gabapentin 300 MG CAPSULE PO SCH ×2 (08:37→22:28)
[2020-12-26] MEDS: Apixaban 5 MG TABLET PO SCH ×2 (08:37→22:28)
[2020-12-26] MEDS: DilTIAZem CD (24hr) 120 MG CAP.ER.24H PO SCH (08:46)
[2020-12-26] MEDS: Budesonide/Formoterol 160/4.5 1 PUFF INH IH SCH ×2 (09:16→22:17)
[2020-12-27] MEDS: Levalbuterol Neb 0.63 MG/3 ML IH SCH ×2 (04:36→09:58)
[2020-12-27 07:57] LABS: Hematocrit 27.3 % (37.5-50.1); Hemoglobin 8.2 g/dL (12.9-16.9); Mean Corpuscular Hemoglobin 31.9 pg (28.0-33.3); Mean Corpuscular Volume 106.2 fL (83.0-100.0); Mean Platelet Volume 9.7 fL (9.4-12.4); Platelet Count 222 K/mcL (140-400); Red Blood Count 2.57 M/mcL (4.19-5.50); Red Cell Distribution Width 14.6 % (11.5-14.5); White Blood Count 10.1 K/mcL (4.3-11.1)
[2020-12-27 08:10] LABS: Calcium 8.2 mg/dL (8.6-10.3); Potassium 4.6 mEq/L (3.5-5.1)
[2020-12-27] MEDS: Budesonide/Formoterol 160/4.5 1 PUFF INH IH SCH ×2 (09:58→22:44)
[2020-12-27] MEDS: Aspirin 81 MG TAB.CHEW PO SCH (10:10)
[2020-12-27] MEDS: Metoprolol XL (24 HR) Succ 50 MG TAB.ER.24H PO SCH (10:10)
[2020-12-27] MEDS: Cyanocobalamin (B-12) 1,000 MCG TABLET PO SCH (10:10)
[2020-12-27] MEDS: BuPROPion XL (24 HR) 150 MG TABLET PO SCH (10:10)
[2020-12-27] MEDS: Gabapentin 300 MG CAPSULE PO SCH ×2 (10:10→21:27)
[2020-12-27] MEDS: Fenofibrate 54 MG TABLET PO SCH (10:10)
[2020-12-27] MEDS: Furosemide 40 MG TABLET PO SCH (10:10)
[2020-12-27] MEDS: DilTIAZem CD (24hr) 120 MG CAP.ER.24H PO SCH (10:11)
[2020-12-27] MEDS: Apixaban 5 MG TABLET PO SCH ×2 (10:11→21:26)
[2020-12-27] MEDS: Lactobacillus 1 EACH CAP.SPRINK PO SCH ×2 (10:17→21:27)
[2020-12-27] MEDS ORDERED: Levalbuterol Neb 0.63 MG/3 ML IH PRN (15:37)
[2020-12-28] MEDS ORDERED: Furosemide 40 MG TABLET PO SCH (08:00)
[2020-12-28] MEDS: Budesonide/Formoterol 160/4.5 1 PUFF INH IH SCH ×2 (10:31→22:23)
[2020-12-28] MEDS ORDERED: Furosemide 20 MG/2 ML VIAL IVP ONE (10:51)
[2020-12-28] MEDS: Cyanocobalamin (B-12) 1,000 MCG TABLET PO SCH (10:52)
[2020-12-28] MEDS: Gabapentin 300 MG CAPSULE PO SCH ×2 (10:52→20:27)
[2020-12-28] MEDS: Metoprolol XL (24 HR) Succ 50 MG TAB.ER.24H PO SCH (10:52)
[2020-12-28] MEDS: Aspirin 81 MG TAB.CHEW PO SCH (10:52)
[2020-12-28] MEDS: Apixaban 5 MG TABLET PO SCH ×2 (10:52→20:28)
[2020-12-28] MEDS: DilTIAZem CD (24hr) 120 MG CAP.ER.24H PO SCH (10:52)
[2020-12-28] MEDS: BuPROPion XL (24 HR) 150 MG TABLET PO SCH (10:52)
[2020-12-28] MEDS: Fenofibrate 54 MG TABLET PO SCH (10:52)
[2020-12-28] MEDS ORDERED: Furosemide 20 MG TABLET PO ONE (10:59)
[2020-12-28] MEDS: Lactobacillus 1 EACH CAP.SPRINK PO SCH ×2 (11:05→20:27)
[2020-12-29] MEDS: Budesonide/Formoterol 160/4.5 1 PUFF INH IH SCH ×2 (10:10→21:29)
[2020-12-29] MEDS: Fenofibrate 54 MG TABLET PO SCH (10:16)
[2020-12-29] MEDS: Aspirin 81 MG TAB.CHEW PO SCH (10:16)
[2020-12-29] MEDS: DilTIAZem CD (24hr) 120 MG CAP.ER.24H PO SCH (10:16)
[2020-12-29] MEDS: BuPROPion XL (24 HR) 150 MG TABLET PO SCH (10:17)
[2020-12-29] MEDS: Cyanocobalamin (B-12) 1,000 MCG TABLET PO SCH (10:17)
[2020-12-29] MEDS: Gabapentin 300 MG CAPSULE PO SCH ×2 (10:17→20:31)
[2020-12-29] MEDS: Apixaban 5 MG TABLET PO SCH ×2 (10:17→20:31)
[2020-12-29] MEDS: Metoprolol XL (24 HR) Succ 50 MG TAB.ER.24H PO SCH (10:17)
[2020-12-29] MEDS: Furosemide 40 MG TABLET PO SCH (10:17)
[2020-12-29] MEDS: Lactobacillus 1 EACH CAP.SPRINK PO SCH ×2 (10:22→20:31)
[2020-12-30 08:27] LABS: Albumin 3.3 g/dL (3.5-5.7); Albumin/Globulin Ratio 1.1 (1.1-2.2); Bilirubin,Total 0.4 mg/dL (0.3-1.0); Calcium 8.8 mg/dL (8.6-10.3); Globulin 2.9 g/dL (2.4-3.5); Hematocrit 29.8 % (37.5-50.1); Hemoglobin 8.8 g/dL (12.9-16.9); Mean Corpuscular HGB Conc 29.5 g/dL (31.6-35.5); Mean Corpuscular Hemoglobin 31.7 pg (28.0-33.3); Mean Corpuscular Volume 107.2 fL (83.0-100.0); Mean Platelet Volume 9.5 fL (9.4-12.4); Platelet Count 214 K/mcL (140-400); Potassium 4.4 mEq/L (3.5-5.1); Red Blood Count 2.78 M/mcL (4.19-5.50); Red Cell Distribution Width 14.2 % (11.5-14.5); Total Protein 6.2 g/dL (6.4-8.9); White Blood Count 8.3 K/mcL (4.3-11.1)
[2020-12-30] MEDS: BuPROPion XL (24 HR) 150 MG TABLET PO SCH (09:32)
[2020-12-30] MEDS: Aspirin 81 MG TAB.CHEW PO SCH (09:32)
[2020-12-30] MEDS: Lactobacillus 1 EACH CAP.SPRINK PO SCH ×2 (09:32→20:47)
[2020-12-30] MEDS: DilTIAZem CD (24hr) 120 MG CAP.ER.24H PO SCH (09:32)
[2020-12-30] MEDS: Metoprolol XL (24 HR) Succ 50 MG TAB.ER.24H PO SCH (09:32)
[2020-12-30] MEDS: Cyanocobalamin (B-12) 1,000 MCG TABLET PO SCH (09:33)
[2020-12-30] MEDS: Apixaban 5 MG TABLET PO SCH ×2 (09:33→20:46)
[2020-12-30] MEDS: Fenofibrate 54 MG TABLET PO SCH (09:33)
[2020-12-30] MEDS: Gabapentin 300 MG CAPSULE PO SCH ×2 (09:33→20:46)
[2020-12-30] MEDS: Furosemide 40 MG TABLET PO SCH (09:33)
[2020-12-30] MEDS: Budesonide/Formoterol 160/4.5 1 PUFF INH IH SCH (10:25)
[2020-12-30] MEDS: Ergocalciferol (VIT D2) 50,000 UNIT (1.25MG) CAP PO SCH (15:27)
[2020-12-31] MEDS: Budesonide/Formoterol 160/4.5 1 PUFF INH IH SCH ×2 (00:05→09:17)
[2020-12-31] MEDS ORDERED: Acetaminophen 325 MG TABLET PO PRN ×2 (03:35→03:41)
[2020-12-31 07:58] VITALS: BP 120/67; PULSE 78; RESP 18; TEMP 98
[2020-12-31] MEDS: Aspirin 81 MG TAB.CHEW PO SCH (08:02)
[2020-12-31] MEDS: DilTIAZem CD (24hr) 120 MG CAP.ER.24H PO SCH (08:02)
[2020-12-31] MEDS: Apixaban 5 MG TABLET PO SCH (08:03)
[2020-12-31] MEDS: Furosemide 40 MG TABLET PO SCH (08:03)
[2020-12-31] MEDS: Lactobacillus 1 EACH CAP.SPRINK PO SCH (08:03)
[2020-12-31] MEDS: Fenofibrate 54 MG TABLET PO SCH (08:04)
[2020-12-31] MEDS: Gabapentin 300 MG CAPSULE PO SCH (08:04)
[2020-12-31] MEDS: Metoprolol XL (24 HR) Succ 50 MG TAB.ER.24H PO SCH (08:04)
[2020-12-31] MEDS: BuPROPion XL (24 HR) 150 MG TABLET PO SCH (08:05)
[2020-12-31] MEDS: Cyanocobalamin (B-12) 1,000 MCG TABLET PO SCH (08:05)
[2020-12-31 09:20] VITALS: O2SAT 92
== END 2020-12-31 18:05 | disposition home health service (06) | DRG 949 ==
LOC: INPPIK 12-16 14:21
PROVIDERS: ADMIT Family Medicine; ATTEND Family Medicine

== ENCOUNTER 2021-01-09 14:21 | Inpatient (IN) ==
[2021-01-09] MEDS: Furosemide 40 MG/4 ML VIAL IVP SCH (20:59)
[2021-01-09] MEDS: Apixaban 5 MG TABLET PO SCH (20:59)
[2021-01-09] MEDS: Gabapentin 300 MG CAPSULE PO SCH (20:59)
[2021-01-09] MEDS: Levalbuterol Neb 0.63 MG/3 ML IH SCH (21:08)
[2021-01-09] MEDS: Budesonide/Formoterol 160/4.5 1 PUFF INH IH SCH (21:09)
[2021-01-10] MEDS: Levalbuterol Neb 0.63 MG/3 ML IH SCH ×4 (04:56→21:39)
[2021-01-10 05:30] LABS: Basophils % 0.3 %; Eosinophils # 0.1 K/mcL (0.0-0.6); Eosinophils % 0.4 %; Hematocrit 30.9 % (37.5-50.1); Immature Granulocytes % 0.4 % (0-4); Lymphocytes # 0.8 K/mcL (0.6-4.6); Lymphocytes % 6.5 %; Mean Corpuscular HGB Conc 29.1 g/dL (31.6-35.5); Mean Corpuscular Hemoglobin 30.5 pg (28.0-33.3); Mean Corpuscular Volume 104.7 fL (83.0-100.0); Mean Platelet Volume 9.4 fL (9.4-12.4); Monocytes # 0.9 K/mcL (0.0-1.3); Monocytes % 6.9 %; Neutrophils # 10.7 K/mcL (1.6-8.9); Nucleated Red Blood Cells 0.2 /100 WBC (0); Platelet Count 482 K/mcL (140-400); Red Blood Count 2.95 M/mcL (4.19-5.50); Red Cell Distribution Width 14.6 % (11.5-14.5); Segmented Neutrophils % 85.5 %; White Blood Count 12.5 K/mcL (4.3-11.1)
[2021-01-10 05:50] LABS: Calcium 9.2 mg/dL (8.6-10.3); Potassium 4.4 mEq/L (3.5-5.1)
[2021-01-10] MEDS: DilTIAZem CD (24hr) 120 MG CAP.ER.24H PO SCH (08:11)
[2021-01-10] MEDS: Metoprolol XL (24 HR) Succ 50 MG TAB.ER.24H PO SCH (08:11)
[2021-01-10] MEDS: Cholecalciferol (D-3) 1,000 UNIT (25MCG) TABLET PO SCH (08:11)
[2021-01-10] MEDS: Lactobacillus 1 EACH CAP.SPRINK PO SCH (08:11)
[2021-01-10] MEDS: Cyanocobalamin (B-12) 1,000 MCG TABLET PO SCH (08:11)
[2021-01-10] MEDS: Aspirin 81 MG TAB.CHEW PO SCH (08:11)
[2021-01-10] MEDS: Fenofibrate 54 MG TABLET PO SCH (08:11)
[2021-01-10] MEDS: BuPROPion XL (24 HR) 150 MG TABLET PO SCH (08:11)
[2021-01-10] MEDS: Apixaban 5 MG TABLET PO SCH ×2 (08:11→20:38)
[2021-01-10] MEDS: Gabapentin 300 MG CAPSULE PO SCH ×3 (08:11→20:38)
[2021-01-10] MEDS: Furosemide 40 MG/4 ML VIAL IVP SCH ×2 (08:11→20:39)
[2021-01-10] MEDS: Budesonide/Formoterol 160/4.5 1 PUFF INH IH SCH ×2 (09:23→21:38)
[2021-01-11] MEDS: Levalbuterol Neb 0.63 MG/3 ML IH SCH ×4 (04:06→21:06)
[2021-01-11] MEDS: Furosemide 40 MG/4 ML VIAL IVP SCH (08:09)
[2021-01-11] MEDS: Fenofibrate 54 MG TABLET PO SCH (08:10)
[2021-01-11] MEDS: Cyanocobalamin (B-12) 1,000 MCG TABLET PO SCH (08:10)
[2021-01-11] MEDS: Metoprolol XL (24 HR) Succ 50 MG TAB.ER.24H PO SCH (08:10)
[2021-01-11] MEDS: Gabapentin 300 MG CAPSULE PO SCH ×3 (08:10→20:22)
[2021-01-11] MEDS: Cholecalciferol (D-3) 1,000 UNIT (25MCG) TABLET PO SCH (08:10)
[2021-01-11] MEDS: Apixaban 5 MG TABLET PO SCH ×2 (08:10→20:20)
[2021-01-11] MEDS: DilTIAZem CD (24hr) 120 MG CAP.ER.24H PO SCH (08:10)
[2021-01-11] MEDS: BuPROPion XL (24 HR) 150 MG TABLET PO SCH (08:10)
[2021-01-11] MEDS: Aspirin 81 MG TAB.CHEW PO SCH (08:10)
[2021-01-11] MEDS: Lactobacillus 1 EACH CAP.SPRINK PO SCH (08:10)
[2021-01-11 09:12] LABS: Hematocrit 28.7 % (37.5-50.1); Hemoglobin 8.2 g/dL (12.9-16.9); Mean Corpuscular HGB Conc 28.6 g/dL (31.6-35.5); Mean Corpuscular Hemoglobin 29.8 pg (28.0-33.3); Mean Corpuscular Volume 104.4 fL (83.0-100.0); Mean Platelet Volume 9.3 fL (9.4-12.4); Platelet Count 421 K/mcL (140-400); Red Blood Count 2.75 M/mcL (4.19-5.50); Red Cell Distribution Width 14.7 % (11.5-14.5); White Blood Count 7.1 K/mcL (4.3-11.1)
[2021-01-11 09:53] LABS: ABG Base Excess 8 mEq/L (-2 to 3); ABG HCO3 36 mEq/L (21-27); ABG Oxygen Saturation 95 % (95-98); ABG PCO2 69 mmHg (35-45); ABG PH 7.32 pH Units (7.32-7.45); ABG PO2 83 mmHg (85-104); ABG TCO2 38 mEq/L (20-26)
[2021-01-11 09:59] LABS: Calcium 8.8 mg/dL (8.6-10.3); Potassium 4.9 mEq/L (3.5-5.1)
[2021-01-11] MEDS: Budesonide/Formoterol 160/4.5 1 PUFF INH IH SCH ×2 (10:13→21:06)
[2021-01-11] MEDS: Furosemide 40 MG TABLET PO SCH (16:16)
[2021-01-12] MEDS: Levalbuterol Neb 0.63 MG/3 ML IH SCH ×4 (04:24→22:28)
[2021-01-12] MEDS: Gabapentin 300 MG CAPSULE PO SCH ×3 (08:13→21:08)
[2021-01-12] MEDS: Cyanocobalamin (B-12) 1,000 MCG TABLET PO SCH (08:14)
[2021-01-12] MEDS: BuPROPion XL (24 HR) 150 MG TABLET PO SCH (08:14)
[2021-01-12] MEDS: Metoprolol XL (24 HR) Succ 50 MG TAB.ER.24H PO SCH (08:14)
[2021-01-12] MEDS: Fenofibrate 54 MG TABLET PO SCH (08:14)
[2021-01-12] MEDS: Cholecalciferol (D-3) 1,000 UNIT (25MCG) TABLET PO SCH (08:14)
[2021-01-12] MEDS: Lactobacillus 1 EACH CAP.SPRINK PO SCH (08:14)
[2021-01-12] MEDS: DilTIAZem CD (24hr) 120 MG CAP.ER.24H PO SCH (08:14)
[2021-01-12] MEDS: Furosemide 40 MG TABLET PO SCH ×2 (08:14→15:16)
[2021-01-12] MEDS: Aspirin 81 MG TAB.CHEW PO SCH (08:14)
[2021-01-12] MEDS: Apixaban 5 MG TABLET PO SCH ×2 (08:14→21:07)
[2021-01-12] MEDS: Budesonide/Formoterol 160/4.5 1 PUFF INH IH SCH ×2 (11:24→22:28)
[2021-01-13] MEDS ORDERED: Naloxone 0.4 MG/ML INJ IVP PRN (01:06)
[2021-01-13] MEDS ORDERED: Acetaminophen 325 MG TABLET PO PRN (01:06)
[2021-01-13] MEDS: *HR* OxyCODONE Immed Rel 5 MG TABLET PO PRN (01:13)
[2021-01-13] MEDS: Levalbuterol Neb 0.63 MG/3 ML IH SCH ×4 (03:43→21:28)
[2021-01-13 07:49] LABS: Hematocrit 30.6 % (37.5-50.1); Mean Corpuscular HGB Conc 29.4 g/dL (31.6-35.5); Mean Corpuscular Hemoglobin 30.6 pg (28.0-33.3); Mean Corpuscular Volume 104.1 fL (83.0-100.0); Mean Platelet Volume 8.9 fL (9.4-12.4); Platelet Count 383 K/mcL (140-400); Red Blood Count 2.94 M/mcL (4.19-5.50); Red Cell Distribution Width 14.1 % (11.5-14.5); White Blood Count 7.9 K/mcL (4.3-11.1)
[2021-01-13 08:09] LABS: Calcium 9.1 mg/dL (8.6-10.3); Potassium 4.5 mEq/L (3.5-5.1)
[2021-01-13] MEDS: Metoprolol XL (24 HR) Succ 50 MG TAB.ER.24H PO SCH (08:55)
[2021-01-13] MEDS: Furosemide 40 MG TABLET PO SCH ×2 (08:55→16:56)
[2021-01-13] MEDS: DilTIAZem CD (24hr) 120 MG CAP.ER.24H PO SCH (08:55)
[2021-01-13] MEDS: Apixaban 5 MG TABLET PO SCH ×2 (08:55→20:56)
[2021-01-13] MEDS: Fenofibrate 54 MG TABLET PO SCH (08:55)
[2021-01-13] MEDS: Cholecalciferol (D-3) 1,000 UNIT (25MCG) TABLET PO SCH (08:55)
[2021-01-13] MEDS: BuPROPion XL (24 HR) 150 MG TABLET PO SCH (08:55)
[2021-01-13] MEDS: Aspirin 81 MG TAB.CHEW PO SCH (08:56)
[2021-01-13] MEDS: Cyanocobalamin (B-12) 1,000 MCG TABLET PO SCH (08:56)
[2021-01-13] MEDS: Lactobacillus 1 EACH CAP.SPRINK PO SCH (08:56)
[2021-01-13] MEDS: Gabapentin 300 MG CAPSULE PO SCH ×3 (08:56→20:55)
[2021-01-13] MEDS: Budesonide/Formoterol 160/4.5 1 PUFF INH IH SCH ×2 (10:11→21:27)
[2021-01-13] MEDS: tiZANidine 4 MG TABLET PO PRN (16:56)
[2021-01-13] MEDS: acetaZOLAMIDE 250 MG TABLET PO SCH (20:56)
[2021-01-14] MEDS: *HR* OxyCODONE Immed Rel 5 MG TABLET PO PRN (02:04)
[2021-01-14] MEDS: Levalbuterol Neb 0.63 MG/3 ML IH SCH ×4 (04:23→21:42)
[2021-01-14] MEDS: BuPROPion XL (24 HR) 150 MG TABLET PO SCH (08:49)
[2021-01-14] MEDS: Lactobacillus 1 EACH CAP.SPRINK PO SCH (08:49)
[2021-01-14] MEDS: tiZANidine 4 MG TABLET PO PRN ×2 (08:49→16:00)
[2021-01-14] MEDS: Furosemide 40 MG TABLET PO SCH (08:49)
[2021-01-14] MEDS: Fenofibrate 54 MG TABLET PO SCH (08:49)
[2021-01-14] MEDS: Aspirin 81 MG TAB.CHEW PO SCH (08:50)
[2021-01-14] MEDS: Gabapentin 300 MG CAPSULE PO SCH ×3 (08:50→20:00)
[2021-01-14] MEDS: Cyanocobalamin (B-12) 1,000 MCG TABLET PO SCH (08:50)
[2021-01-14] MEDS: DilTIAZem CD (24hr) 120 MG CAP.ER.24H PO SCH (08:50)
[2021-01-14] MEDS: Apixaban 5 MG TABLET PO SCH ×2 (08:50→20:00)
[2021-01-14] MEDS: Metoprolol XL (24 HR) Succ 50 MG TAB.ER.24H PO SCH (08:50)
[2021-01-14] MEDS: acetaZOLAMIDE 250 MG TABLET PO SCH ×2 (08:51→20:00)
[2021-01-14] MEDS: Cholecalciferol (D-3) 1,000 UNIT (25MCG) TABLET PO SCH (08:51)
[2021-01-14] MEDS: Budesonide/Formoterol 160/4.5 1 PUFF INH IH SCH ×2 (10:25→21:42)
[2021-01-14 12:56] LABS: Potassium 4.1 mEq/L (3.5-5.1)
[2021-01-15] MEDS: Levalbuterol Neb 0.63 MG/3 ML IH SCH ×4 (04:29→21:47)
[2021-01-15 06:03] LABS: Calcium 8.7 mg/dL (8.6-10.3); Potassium 4.4 mEq/L (3.5-5.1)
[2021-01-15] MEDS: Furosemide 40 MG TABLET PO SCH (09:23)
[2021-01-15] MEDS: Aspirin 81 MG TAB.CHEW PO SCH (09:23)
[2021-01-15] MEDS: Gabapentin 300 MG CAPSULE PO SCH ×3 (09:23→19:57)
[2021-01-15] MEDS: DilTIAZem CD (24hr) 120 MG CAP.ER.24H PO SCH (09:23)
[2021-01-15] MEDS: Lactobacillus 1 EACH CAP.SPRINK PO SCH (09:23)
[2021-01-15] MEDS: Cholecalciferol (D-3) 1,000 UNIT (25MCG) TABLET PO SCH (09:23)
[2021-01-15] MEDS: Cyanocobalamin (B-12) 1,000 MCG TABLET PO SCH (09:23)
[2021-01-15] MEDS: BuPROPion XL (24 HR) 150 MG TABLET PO SCH (09:23)
[2021-01-15] MEDS: Metoprolol XL (24 HR) Succ 50 MG TAB.ER.24H PO SCH (09:23)
[2021-01-15] MEDS: Fenofibrate 54 MG TABLET PO SCH (09:24)
[2021-01-15] MEDS: Apixaban 5 MG TABLET PO SCH ×2 (09:24→19:57)
[2021-01-15] MEDS: Budesonide/Formoterol 160/4.5 1 PUFF INH IH SCH ×2 (09:50→21:46)
[2021-01-15] MEDS: acetaZOLAMIDE 250 MG TABLET PO SCH (19:58)
[2021-01-16] MEDS: Levalbuterol Neb 0.63 MG/3 ML IH SCH ×3 (04:18→17:04)
[2021-01-16 05:56] LABS: Calcium 8.9 mg/dL (8.6-10.3); Potassium 4.1 mEq/L (3.5-5.1)
[2021-01-16] MEDS: Metoprolol XL (24 HR) Succ 50 MG TAB.ER.24H PO SCH (08:23)
[2021-01-16] MEDS: Aspirin 81 MG TAB.CHEW PO SCH (08:23)
[2021-01-16] MEDS: Fenofibrate 54 MG TABLET PO SCH (08:23)
[2021-01-16] MEDS: Apixaban 5 MG TABLET PO SCH ×2 (08:23→20:06)
[2021-01-16] MEDS: Cholecalciferol (D-3) 1,000 UNIT (25MCG) TABLET PO SCH (08:23)
[2021-01-16] MEDS: DilTIAZem CD (24hr) 120 MG CAP.ER.24H PO SCH (08:23)
[2021-01-16] MEDS: Gabapentin 300 MG CAPSULE PO SCH ×3 (08:23→20:05)
[2021-01-16] MEDS: acetaZOLAMIDE 250 MG TABLET PO SCH (08:23)
[2021-01-16] MEDS: Lactobacillus 1 EACH CAP.SPRINK PO SCH (08:23)
[2021-01-16] MEDS: Furosemide 40 MG TABLET PO SCH (08:23)
[2021-01-16] MEDS: Cyanocobalamin (B-12) 1,000 MCG TABLET PO SCH (08:23)
[2021-01-16] MEDS: BuPROPion XL (24 HR) 150 MG TABLET PO SCH (08:23)
[2021-01-16] MEDS: Budesonide/Formoterol 160/4.5 1 PUFF INH IH SCH (10:46)
[2021-01-17] MEDS: Budesonide/Formoterol 160/4.5 1 PUFF INH IH SCH ×3 (00:45→21:33)
[2021-01-17] MEDS: Levalbuterol Neb 0.63 MG/3 ML IH SCH ×4 (02:29→16:16)
[2021-01-17] MEDS: Cyanocobalamin (B-12) 1,000 MCG TABLET PO SCH (08:45)
[2021-01-17] MEDS: Cholecalciferol (D-3) 1,000 UNIT (25MCG) TABLET PO SCH (08:45)
[2021-01-17] MEDS: Apixaban 5 MG TABLET PO SCH ×2 (08:45→21:05)
[2021-01-17] MEDS: BuPROPion XL (24 HR) 150 MG TABLET PO SCH (08:45)
[2021-01-17] MEDS: DilTIAZem CD (24hr) 120 MG CAP.ER.24H PO SCH (08:45)
[2021-01-17] MEDS: Lactobacillus 1 EACH CAP.SPRINK PO SCH (08:45)
[2021-01-17] MEDS: Fenofibrate 54 MG TABLET PO SCH (08:45)
[2021-01-17] MEDS: Aspirin 81 MG TAB.CHEW PO SCH (08:46)
[2021-01-17] MEDS: Gabapentin 300 MG CAPSULE PO SCH ×3 (08:46→21:04)
[2021-01-17] MEDS: Furosemide 40 MG TABLET PO SCH (08:46)
[2021-01-17] MEDS: Metoprolol XL (24 HR) Succ 50 MG TAB.ER.24H PO SCH (08:46)
[2021-01-17] MEDS: Levalbuterol 1 PUFF INHALER IH SCH (21:34)
[2021-01-18] MEDS: Levalbuterol 1 PUFF INHALER IH SCH ×4 (03:38→22:30)
[2021-01-18] MEDS: Gabapentin 300 MG CAPSULE PO SCH ×3 (08:20→19:38)
[2021-01-18] MEDS: Metoprolol XL (24 HR) Succ 50 MG TAB.ER.24H PO SCH (08:20)
[2021-01-18] MEDS: DilTIAZem CD (24hr) 120 MG CAP.ER.24H PO SCH (08:20)
[2021-01-18] MEDS: Cholecalciferol (D-3) 1,000 UNIT (25MCG) TABLET PO SCH (08:20)
[2021-01-18] MEDS: Cyanocobalamin (B-12) 1,000 MCG TABLET PO SCH (08:20)
[2021-01-18] MEDS: BuPROPion XL (24 HR) 150 MG TABLET PO SCH (08:20)
[2021-01-18] MEDS: Lactobacillus 1 EACH CAP.SPRINK PO SCH (08:20)
[2021-01-18] MEDS: Aspirin 81 MG TAB.CHEW PO SCH (08:20)
[2021-01-18] MEDS: Apixaban 5 MG TABLET PO SCH ×2 (08:20→19:38)
[2021-01-18] MEDS: Furosemide 40 MG TABLET PO SCH (08:21)
[2021-01-18] MEDS: Fenofibrate 54 MG TABLET PO SCH (08:21)
[2021-01-18] MEDS: Budesonide/Formoterol 160/4.5 1 PUFF INH IH SCH ×2 (09:14→22:29)
[2021-01-19] MEDS: Levalbuterol 1 PUFF INHALER IH SCH ×4 (04:31→22:24)
[2021-01-19] MEDS: Metoprolol XL (24 HR) Succ 50 MG TAB.ER.24H PO SCH (08:13)
[2021-01-19] MEDS: Aspirin 81 MG TAB.CHEW PO SCH (08:13)
[2021-01-19] MEDS: Lactobacillus 1 EACH CAP.SPRINK PO SCH (08:14)
[2021-01-19] MEDS: BuPROPion XL (24 HR) 150 MG TABLET PO SCH (08:14)
[2021-01-19] MEDS: Fenofibrate 54 MG TABLET PO SCH (08:14)
[2021-01-19] MEDS: DilTIAZem CD (24hr) 120 MG CAP.ER.24H PO SCH (08:14)
[2021-01-19] MEDS: Cholecalciferol (D-3) 1,000 UNIT (25MCG) TABLET PO SCH (08:14)
[2021-01-19] MEDS: Cyanocobalamin (B-12) 1,000 MCG TABLET PO SCH (08:14)
[2021-01-19] MEDS: Furosemide 40 MG TABLET PO SCH (08:14)
[2021-01-19] MEDS: Gabapentin 300 MG CAPSULE PO SCH ×3 (08:14→20:03)
[2021-01-19] MEDS: Apixaban 5 MG TABLET PO SCH ×2 (08:14→20:04)
[2021-01-19] MEDS: Budesonide/Formoterol 160/4.5 1 PUFF INH IH SCH ×2 (09:00→22:24)
[2021-01-20] MEDS: Levalbuterol 1 PUFF INHALER IH SCH ×4 (03:40→21:46)
[2021-01-20] MEDS: DilTIAZem CD (24hr) 120 MG CAP.ER.24H PO SCH (07:57)
[2021-01-20] MEDS: Cyanocobalamin (B-12) 1,000 MCG TABLET PO SCH (07:58)
[2021-01-20] MEDS: Metoprolol XL (24 HR) Succ 50 MG TAB.ER.24H PO SCH (07:58)
[2021-01-20] MEDS: Aspirin 81 MG TAB.CHEW PO SCH (07:58)
[2021-01-20] MEDS: Apixaban 5 MG TABLET PO SCH ×2 (07:58→19:52)
[2021-01-20] MEDS: Gabapentin 300 MG CAPSULE PO SCH ×3 (07:58→19:52)
[2021-01-20] MEDS: Lactobacillus 1 EACH CAP.SPRINK PO SCH (07:58)
[2021-01-20] MEDS: Cholecalciferol (D-3) 1,000 UNIT (25MCG) TABLET PO SCH (07:58)
[2021-01-20] MEDS: Furosemide 40 MG TABLET PO SCH (07:58)
[2021-01-20] MEDS: BuPROPion XL (24 HR) 150 MG TABLET PO SCH (07:58)
[2021-01-20] MEDS: Fenofibrate 54 MG TABLET PO SCH (07:58)
[2021-01-20 08:21] LABS: Basophils % 0.3 %; Eosinophils # 0.1 K/mcL (0.0-0.6); Eosinophils % 1.5 %; Hematocrit 28.4 % (37.5-50.1); Hemoglobin 8.3 g/dL (12.9-16.9); Immature Granulocytes % 0.3 % (0-4); Lymphocytes # 0.8 K/mcL (0.6-4.6); Lymphocytes % 11.3 %; Mean Corpuscular HGB Conc 29.2 g/dL (31.6-35.5); Mean Corpuscular Hemoglobin 29.4 pg (28.0-33.3); Mean Corpuscular Volume 100.7 fL (83.0-100.0); Mean Platelet Volume 9.6 fL (9.4-12.4); Monocytes # 0.5 K/mcL (0.0-1.3); Neutrophils # 5.3 K/mcL (1.6-8.9); Platelet Count 242 K/mcL (140-400); Red Blood Count 2.82 M/mcL (4.19-5.50); Red Cell Distribution Width 14.6 % (11.5-14.5); Segmented Neutrophils % 78.6 %; White Blood Count 6.8 K/mcL (4.3-11.1)
[2021-01-20 08:32] LABS: Calcium 8.8 mg/dL (8.6-10.3); Potassium 3.9 mEq/L (3.5-5.1)
[2021-01-20] MEDS: Budesonide/Formoterol 160/4.5 1 PUFF INH IH SCH ×2 (10:26→21:46)
[2021-01-20] MEDS: tiZANidine 4 MG TABLET PO PRN (22:08)
[2021-01-20] MEDS: *HR* OxyCODONE Immed Rel 5 MG TABLET PO PRN (22:08)
[2021-01-21] MEDS: Levalbuterol 1 PUFF INHALER IH SCH ×4 (03:48→21:54)
[2021-01-21] MEDS: Apixaban 5 MG TABLET PO SCH ×2 (09:50→20:00)
[2021-01-21] MEDS: Gabapentin 300 MG CAPSULE PO SCH ×3 (09:50→20:00)
[2021-01-21] MEDS: Aspirin 81 MG TAB.CHEW PO SCH (09:51)
[2021-01-21] MEDS: Cholecalciferol (D-3) 1,000 UNIT (25MCG) TABLET PO SCH (09:51)
[2021-01-21] MEDS: Lactobacillus 1 EACH CAP.SPRINK PO SCH (09:51)
[2021-01-21] MEDS: DilTIAZem CD (24hr) 120 MG CAP.ER.24H PO SCH (09:52)
[2021-01-21] MEDS: BuPROPion XL (24 HR) 150 MG TABLET PO SCH (09:52)
[2021-01-21] MEDS: Cyanocobalamin (B-12) 1,000 MCG TABLET PO SCH (09:52)
[2021-01-21] MEDS: Fenofibrate 54 MG TABLET PO SCH (09:52)
[2021-01-21] MEDS: Furosemide 40 MG TABLET PO SCH ×2 (09:52→16:17)
[2021-01-21] MEDS: Metoprolol XL (24 HR) Succ 50 MG TAB.ER.24H PO SCH (09:52)
[2021-01-21] MEDS: Budesonide/Formoterol 160/4.5 1 PUFF INH IH SCH ×2 (10:14→21:54)
[2021-01-21] MEDS: *HR* OxyCODONE Immed Rel 5 MG TABLET PO PRN (16:17)
[2021-01-22] MEDS: Levalbuterol 1 PUFF INHALER IH SCH ×4 (03:03→21:21)
[2021-01-22] MEDS: Metoprolol XL (24 HR) Succ 50 MG TAB.ER.24H PO SCH (08:03)
[2021-01-22] MEDS: Lactobacillus 1 EACH CAP.SPRINK PO SCH (08:03)
[2021-01-22] MEDS: Gabapentin 300 MG CAPSULE PO SCH ×3 (08:03→20:14)
[2021-01-22] MEDS: Fenofibrate 54 MG TABLET PO SCH (08:04)
[2021-01-22] MEDS: Furosemide 40 MG TABLET PO SCH ×2 (08:04→17:06)
[2021-01-22] MEDS: Cholecalciferol (D-3) 1,000 UNIT (25MCG) TABLET PO SCH (08:04)
[2021-01-22] MEDS: Apixaban 5 MG TABLET PO SCH ×2 (08:04→20:15)
[2021-01-22] MEDS: BuPROPion XL (24 HR) 150 MG TABLET PO SCH (08:04)
[2021-01-22] MEDS: Cyanocobalamin (B-12) 1,000 MCG TABLET PO SCH (08:04)
[2021-01-22] MEDS: DilTIAZem CD (24hr) 120 MG CAP.ER.24H PO SCH (08:04)
[2021-01-22] MEDS: Aspirin 81 MG TAB.CHEW PO SCH (08:04)
[2021-01-22] MEDS: Budesonide/Formoterol 160/4.5 1 PUFF INH IH SCH ×2 (10:06→21:20)
[2021-01-22] MEDS: tiZANidine 4 MG TABLET PO PRN (17:06)
[2021-01-23] MEDS: Levalbuterol 1 PUFF INHALER IH SCH ×4 (03:10→22:58)
[2021-01-23 06:37] LABS: Calcium 8.6 mg/dL (8.6-10.3); Potassium 3.8 mEq/L (3.5-5.1)
[2021-01-23] MEDS: Apixaban 5 MG TABLET PO SCH ×2 (08:03→20:09)
[2021-01-23] MEDS: Cholecalciferol (D-3) 1,000 UNIT (25MCG) TABLET PO SCH (08:03)
[2021-01-23] MEDS: DilTIAZem CD (24hr) 120 MG CAP.ER.24H PO SCH (08:03)
[2021-01-23] MEDS: Aspirin 81 MG TAB.CHEW PO SCH (08:03)
[2021-01-23] MEDS: Fenofibrate 54 MG TABLET PO SCH (08:03)
[2021-01-23] MEDS: Gabapentin 300 MG CAPSULE PO SCH ×3 (08:03→20:09)
[2021-01-23] MEDS: Lactobacillus 1 EACH CAP.SPRINK PO SCH (08:03)
[2021-01-23] MEDS: Metoprolol XL (24 HR) Succ 50 MG TAB.ER.24H PO SCH (08:03)
[2021-01-23] MEDS: Furosemide 40 MG TABLET PO SCH ×2 (08:03→15:58)
[2021-01-23] MEDS: BuPROPion XL (24 HR) 150 MG TABLET PO SCH (08:03)
[2021-01-23] MEDS: tiZANidine 4 MG TABLET PO PRN ×2 (09:07→18:15)
[2021-01-23] MEDS: Cyanocobalamin (B-12) 1,000 MCG TABLET PO SCH (09:13)
[2021-01-23] MEDS: Budesonide/Formoterol 160/4.5 1 PUFF INH IH SCH ×2 (09:22→22:59)
[2021-01-24] MEDS: Levalbuterol 1 PUFF INHALER IH SCH ×4 (04:22→21:58)
[2021-01-24] MEDS: DilTIAZem CD (24hr) 120 MG CAP.ER.24H PO SCH (07:48)
[2021-01-24] MEDS: Lactobacillus 1 EACH CAP.SPRINK PO SCH (07:48)
[2021-01-24] MEDS: Metoprolol XL (24 HR) Succ 50 MG TAB.ER.24H PO SCH (07:48)
[2021-01-24] MEDS: Furosemide 40 MG TABLET PO SCH ×2 (07:49→16:32)
[2021-01-24] MEDS: Fenofibrate 54 MG TABLET PO SCH (07:49)
[2021-01-24] MEDS: Aspirin 81 MG TAB.CHEW PO SCH (07:49)
[2021-01-24] MEDS: Cyanocobalamin (B-12) 1,000 MCG TABLET PO SCH (07:49)
[2021-01-24] MEDS: Gabapentin 300 MG CAPSULE PO SCH ×3 (07:49→19:28)
[2021-01-24] MEDS: Cholecalciferol (D-3) 1,000 UNIT (25MCG) TABLET PO SCH (07:49)
[2021-01-24] MEDS: Apixaban 5 MG TABLET PO SCH ×2 (07:49→19:31)
[2021-01-24] MEDS: BuPROPion XL (24 HR) 150 MG TABLET PO SCH (07:49)
[2021-01-24] MEDS: *HR* OxyCODONE Immed Rel 5 MG TABLET PO PRN (07:54)
[2021-01-24] MEDS: tiZANidine 4 MG TABLET PO PRN ×2 (07:55→14:42)
[2021-01-24] MEDS: Budesonide/Formoterol 160/4.5 1 PUFF INH IH SCH ×2 (09:46→21:58)
[2021-01-25] MEDS: *HR* OxyCODONE Immed Rel 5 MG TABLET PO PRN ×2 (00:04→08:35)
[2021-01-25] MEDS: Levalbuterol 1 PUFF INHALER IH SCH ×4 (04:30→21:17)
[2021-01-25] MEDS: Gabapentin 300 MG CAPSULE PO SCH ×3 (08:26→20:28)
[2021-01-25] MEDS: Cyanocobalamin (B-12) 1,000 MCG TABLET PO SCH (08:26)
[2021-01-25] MEDS: Lactobacillus 1 EACH CAP.SPRINK PO SCH (08:26)
[2021-01-25] MEDS: DilTIAZem CD (24hr) 120 MG CAP.ER.24H PO SCH (08:27)
[2021-01-25] MEDS: Furosemide 40 MG TABLET PO SCH ×2 (08:27→16:21)
[2021-01-25] MEDS: BuPROPion XL (24 HR) 150 MG TABLET PO SCH (08:27)
[2021-01-25] MEDS: Apixaban 5 MG TABLET PO SCH ×2 (08:27→20:28)
[2021-01-25] MEDS: Aspirin 81 MG TAB.CHEW PO SCH (08:27)
[2021-01-25] MEDS: Cholecalciferol (D-3) 1,000 UNIT (25MCG) TABLET PO SCH (08:27)
[2021-01-25] MEDS: Metoprolol XL (24 HR) Succ 50 MG TAB.ER.24H PO SCH (08:27)
[2021-01-25] MEDS: Fenofibrate 54 MG TABLET PO SCH (08:28)
[2021-01-25] MEDS: tiZANidine 4 MG TABLET PO PRN (08:35)
[2021-01-25] MEDS: Budesonide/Formoterol 160/4.5 1 PUFF INH IH SCH ×2 (09:36→21:17)
[2021-01-26] MEDS: Levalbuterol 1 PUFF INHALER IH SCH (03:26)
[2021-01-26 06:47] VITALS: BP 113/60; PULSE 110; RESP 16; TEMP 98.3
[2021-01-26] MEDS: Apixaban 5 MG TABLET PO SCH (07:49)
[2021-01-26] MEDS: Aspirin 81 MG TAB.CHEW PO SCH (07:49)
[2021-01-26] MEDS: Cyanocobalamin (B-12) 1,000 MCG TABLET PO SCH (07:49)
[2021-01-26] MEDS: Fenofibrate 54 MG TABLET PO SCH (07:49)
[2021-01-26] MEDS: Metoprolol XL (24 HR) Succ 50 MG TAB.ER.24H PO SCH (07:49)
[2021-01-26] MEDS: Cholecalciferol (D-3) 1,000 UNIT (25MCG) TABLET PO SCH (07:49)
[2021-01-26] MEDS: BuPROPion XL (24 HR) 150 MG TABLET PO SCH (07:49)
[2021-01-26] MEDS: Gabapentin 300 MG CAPSULE PO SCH (07:49)
[2021-01-26] MEDS: Furosemide 40 MG TABLET PO SCH (07:50)
[2021-01-26] MEDS: Lactobacillus 1 EACH CAP.SPRINK PO SCH (07:50)
[2021-01-26] MEDS: DilTIAZem CD (24hr) 120 MG CAP.ER.24H PO SCH (07:50)
[2021-01-26 07:53] LABS: Hematocrit 27.9 % (37.5-50.1); Hemoglobin 8.1 g/dL (12.9-16.9); Mean Corpuscular Hemoglobin 28.7 pg (28.0-33.3); Mean Corpuscular Volume 98.9 fL (83.0-100.0); Mean Platelet Volume 9.5 fL (9.4-12.4); Platelet Count 242 K/mcL (140-400); Red Blood Count 2.82 M/mcL (4.19-5.50); Red Cell Distribution Width 14.7 % (11.5-14.5); White Blood Count 8.5 K/mcL (4.3-11.1)
[2021-01-26] MEDS ORDERED: Levalbuterol 1 PUFF INHALER IH PRN (08:18)
[2021-01-26] MEDS: Budesonide/Formoterol 160/4.5 1 PUFF INH IH SCH (08:46)
[2021-01-26 11:59] VITALS: O2SAT 97
[2021-01-26] MEDS ORDERED: FLU Vac QV 21-22 (6Month+)/PF 0.5 ML SYRINGE IM ONE (12:03)
== END 2021-01-26 14:35 | disposition home health service (06) | DRG 291 ==
LOC: INPPIK 15:09
PROVIDERS: ADMIT Internal Medicine; ATTEND Internal Medicine

== ENCOUNTER 2021-02-09 07:50 | Inpatient (IN) ==
[2021-02-09] MEDS ORDERED: Furosemide 40 MG/4 ML VIAL IVP ONE (08:17)
[2021-02-09 08:34] LABS: Bilirubin,Urine Negative (Negative); Blood,Urine Negative (Negative); Clarity,Urine Clear (Clear); Color,Urine Yellow (Yellow); Glucose,Urine (UA) Normal (Normal); Ketones,Urine Negative (Negative); Leukocyte Esterase,Urine Small (Negative); Nitrite,Urine Negative (Negative); Protein,Urine Negative (Neg-Trace); Urobilinogen,Urine Normal (Normal)
[2021-02-09 08:39] LABS: Bacteria,Urine Few per hpf (None-Few); WBC,Urine 0-3 per hpf (0-3)
[2021-02-09 09:15] LABS: Basophils # 0.1 K/mcL (0.0-0.2); Basophils % 0.6 %; Eosinophils # 0.2 K/mcL (0.0-0.6); Eosinophils % 1.7 %; Hematocrit 30.5 % (37.5-50.1); Hemoglobin 8.5 g/dL (12.9-16.9); Immature Granulocytes % 0.4 % (0-4); Lymphocytes % 9.9 %; Mean Corpuscular HGB Conc 27.9 g/dL (31.6-35.5); Mean Corpuscular Hemoglobin 27.1 pg (28.0-33.3); Mean Corpuscular Volume 97.1 fL (83.0-100.0); Mean Platelet Volume 8.7 fL (9.4-12.4); Monocytes # 0.5 K/mcL (0.0-1.3); Monocytes % 5.4 %; Neutrophils # 7.9 K/mcL (1.6-8.9); Platelet Count 366 K/mcL (140-400); Red Blood Count 3.14 M/mcL (4.19-5.50); Red Cell Distribution Width 15.6 % (11.5-14.5); White Blood Count 9.7 K/mcL (4.3-11.1)
[2021-02-09 09:24] LABS: INR 2.2; Prothrombin Time 24.7 Seconds (9.4-12.1)
[2021-02-09 09:26] LABS: Activated Partial Thrombo Time 37.7 Seconds (26.0-36.0)
[2021-02-09 09:40] LABS: Hypochromasia Present (Not Present); Platelet Estimate Normal (Normal)
[2021-02-09 09:43] LABS: Albumin 3.8 g/dL (3.5-5.7); Bilirubin,Direct 0.1 mg/dL (0.0-0.2); Bilirubin,Indirect 0.3 mg/dL (0.0-1.0); Bilirubin,Total 0.4 mg/dL (0.3-1.0); Calcium 9.1 mg/dL (8.6-10.3); Globulin 3.9 g/dL (2.4-3.5); Potassium 4.4 mEq/L (3.5-5.1); Total Protein 7.7 g/dL (6.4-8.9); Troponin I 0.19 ng/mL (< 0.04)
[2021-02-09 10:18] LABS: ABG Base Excess 13 mEq/L (-2 to 3); ABG HCO3 42 mEq/L (21-27); ABG Oxygen Saturation 92 % (95-98); ABG PCO2 84 mmHg (35-45); ABG PO2 75 mmHg (85-104); ABG TCO2 44 mEq/L (20-26)
[2021-02-09] MEDS ORDERED: Ondansetron ODT 4 MG TAB.RAPDIS SL PRN (10:35)
[2021-02-09] MEDS ORDERED: Naloxone 0.4 MG/ML INJ IVP PRN (10:35)
[2021-02-09] MEDS ORDERED: Acetaminophen 325 MG TABLET PO PRN (10:35)
[2021-02-09] MEDS: Gabapentin 300 MG CAPSULE PO SCH ×2 (15:10→18:55)
[2021-02-09] MEDS: Levalbuterol Neb 0.63 MG/3 ML IH SCH ×2 (16:00→21:05)
[2021-02-09] MEDS: Lactobacillus 1 EACH CAP.SPRINK PO SCH (19:29)
[2021-02-09] MEDS: Apixaban 5 MG TABLET PO SCH (19:29)
[2021-02-09] MEDS: Furosemide 40 MG/4 ML VIAL IVP SCH ×2 (19:30→21:06)
[2021-02-09] MEDS: Budesonide/Formoterol 160/4.5 1 PUFF INH IH SCH (21:05)
[2021-02-09] MEDS ORDERED: Furosemide 40 MG TABLET PO ONE (21:08)
[2021-02-10] MEDS: Levalbuterol Neb 0.63 MG/3 ML IH SCH ×4 (03:49→22:11)
[2021-02-10 07:44] LABS: Hematocrit 29.7 % (37.5-50.1); Hemoglobin 8.3 g/dL (12.9-16.9); Mean Corpuscular HGB Conc 27.9 g/dL (31.6-35.5); Mean Corpuscular Hemoglobin 26.7 pg (28.0-33.3); Mean Corpuscular Volume 95.5 fL (83.0-100.0); Mean Platelet Volume 8.9 fL (9.4-12.4); Platelet Count 340 K/mcL (140-400); Red Blood Count 3.11 M/mcL (4.19-5.50); Red Cell Distribution Width 15.9 % (11.5-14.5); White Blood Count 10.6 K/mcL (4.3-11.1)
[2021-02-10 08:09] LABS: Calcium 9.4 mg/dL (8.6-10.3); Magnesium 1.8 mg/dL (1.6-2.6); Potassium 3.6 mEq/L (3.5-5.1)
[2021-02-10] MEDS: Budesonide/Formoterol 160/4.5 1 PUFF INH IH SCH ×2 (09:54→22:11)
[2021-02-10] MEDS: DilTIAZem CD (24hr) 120 MG CAP.ER.24H PO SCH (10:26)
[2021-02-10] MEDS: Aspirin 81 MG TAB.CHEW PO SCH (10:27)
[2021-02-10] MEDS: Apixaban 5 MG TABLET PO SCH ×2 (10:27→21:17)
[2021-02-10] MEDS: Metoprolol XL (24 HR) Succ 50 MG TAB.ER.24H PO SCH (10:27)
[2021-02-10] MEDS: Furosemide 40 MG/4 ML VIAL IVP SCH ×2 (10:27→23:29)
[2021-02-10] MEDS: Fenofibrate 54 MG TABLET PO SCH (10:27)
[2021-02-10] MEDS: Lactobacillus 1 EACH CAP.SPRINK PO SCH ×2 (10:27→21:17)
[2021-02-10] MEDS: BuPROPion XL (24 HR) 150 MG TABLET PO SCH (10:27)
[2021-02-10] MEDS: Gabapentin 300 MG CAPSULE PO SCH ×3 (10:27→21:17)
[2021-02-10] MEDS: Cyanocobalamin (B-12) 1,000 MCG TABLET PO SCH (10:27)
[2021-02-10] MEDS ORDERED: Albumin 25% 25gram/100mL 25 GM/100 ML IV.SOLN IVPB ONE (20:30)
[2021-02-11] MEDS: Levalbuterol Neb 0.63 MG/3 ML IH SCH ×4 (03:18→22:36)
[2021-02-11 07:45] LABS: Basophils # 0.1 K/mcL (0.0-0.2); Basophils % 0.6 %; Eosinophils # 0.1 K/mcL (0.0-0.6); Eosinophils % 1.3 %; Hematocrit 28.6 % (37.5-50.1); Hemoglobin 8.1 g/dL (12.9-16.9); Immature Granulocytes % 0.4 % (0-4); Lymphocytes % 11.2 %; Mean Corpuscular HGB Conc 28.3 g/dL (31.6-35.5); Mean Corpuscular Hemoglobin 26.9 pg (28.0-33.3); Mean Platelet Volume 9.4 fL (9.4-12.4); Monocytes # 0.4 K/mcL (0.0-1.3); Monocytes % 4.9 %; Neutrophils # 7.4 K/mcL (1.6-8.9); Platelet Count 317 K/mcL (140-400); Red Blood Count 3.01 M/mcL (4.19-5.50); Red Cell Distribution Width 16.1 % (11.5-14.5); Segmented Neutrophils % 81.6 %
[2021-02-11 08:03] LABS: Calcium 9.2 mg/dL (8.6-10.3); Magnesium 1.8 mg/dL (1.6-2.6); Potassium 3.8 mEq/L (3.5-5.1)
[2021-02-11] MEDS ORDERED: Albumin 25% 25gram/100mL 25 GM/100 ML IV.SOLN IVPB ONE ×2 (08:53→20:30)
[2021-02-11] MEDS: Aspirin 81 MG TAB.CHEW PO SCH (09:40)
[2021-02-11] MEDS: Gabapentin 300 MG CAPSULE PO SCH ×3 (09:41→20:47)
[2021-02-11] MEDS: Fenofibrate 54 MG TABLET PO SCH (09:41)
[2021-02-11] MEDS: Cyanocobalamin (B-12) 1,000 MCG TABLET PO SCH (09:41)
[2021-02-11] MEDS: Apixaban 5 MG TABLET PO SCH ×2 (09:41→20:47)
[2021-02-11] MEDS: Lactobacillus 1 EACH CAP.SPRINK PO SCH ×2 (09:41→20:47)
[2021-02-11] MEDS: Metoprolol XL (24 HR) Succ 50 MG TAB.ER.24H PO SCH (09:41)
[2021-02-11] MEDS: BuPROPion XL (24 HR) 150 MG TABLET PO SCH (09:41)
[2021-02-11] MEDS: DilTIAZem CD (24hr) 120 MG CAP.ER.24H PO SCH (09:42)
[2021-02-11] MEDS: Budesonide/Formoterol 160/4.5 1 PUFF INH IH SCH ×2 (10:25→22:36)
[2021-02-11] MEDS: Furosemide 40 MG/4 ML VIAL IVP SCH ×2 (12:19→23:08)
[2021-02-12] MEDS: Levalbuterol Neb 0.63 MG/3 ML IH SCH ×4 (04:24→22:35)
[2021-02-12 07:29] LABS: Basophils # 0.1 K/mcL (0.0-0.2); Basophils % 0.7 %; Eosinophils # 0.1 K/mcL (0.0-0.6); Hematocrit 27.3 % (37.5-50.1); Hemoglobin 7.6 g/dL (12.9-16.9); Immature Granulocytes % 0.3 % (0-4); Lymphocytes % 10.5 %; Mean Corpuscular HGB Conc 27.8 g/dL (31.6-35.5); Mean Corpuscular Hemoglobin 26.4 pg (28.0-33.3); Mean Corpuscular Volume 94.8 fL (83.0-100.0); Mean Platelet Volume 9.5 fL (9.4-12.4); Monocytes # 0.5 K/mcL (0.0-1.3); Monocytes % 5.3 %; Neutrophils # 7.5 K/mcL (1.6-8.9); Platelet Count 302 K/mcL (140-400); Red Blood Count 2.88 M/mcL (4.19-5.50); Red Cell Distribution Width 16.1 % (11.5-14.5); Segmented Neutrophils % 82.2 %; White Blood Count 9.2 K/mcL (4.3-11.1)
[2021-02-12 07:57] LABS: Calcium 9.1 mg/dL (8.6-10.3)
[2021-02-12] MEDS: Gabapentin 300 MG CAPSULE PO SCH ×3 (09:30→22:15)
[2021-02-12] MEDS: Cyanocobalamin (B-12) 1,000 MCG TABLET PO SCH (09:30)
[2021-02-12] MEDS: Lactobacillus 1 EACH CAP.SPRINK PO SCH ×2 (09:31→22:15)
[2021-02-12] MEDS: BuPROPion XL (24 HR) 150 MG TABLET PO SCH (09:31)
[2021-02-12] MEDS: Aspirin 81 MG TAB.CHEW PO SCH (09:31)
[2021-02-12] MEDS: Apixaban 5 MG TABLET PO SCH ×2 (09:31→22:15)
[2021-02-12] MEDS: Fenofibrate 54 MG TABLET PO SCH (09:31)
[2021-02-12] MEDS: Metoprolol XL (24 HR) Succ 50 MG TAB.ER.24H PO SCH (09:31)
[2021-02-12] MEDS: DilTIAZem CD (24hr) 120 MG CAP.ER.24H PO SCH (09:31)
[2021-02-12] MEDS: Budesonide/Formoterol 160/4.5 1 PUFF INH IH SCH ×2 (10:17→22:35)
[2021-02-12] MEDS ORDERED: acetaZOLAMIDE 375 MG in Water for inj. (sterile) 3.75 ML IVP ONE ×2 (10:28→14:00)
[2021-02-13] MEDS: Levalbuterol Neb 0.63 MG/3 ML IH SCH ×4 (04:52→21:57)
[2021-02-13 08:18] LABS: Basophils # 0.1 K/mcL (0.0-0.2); Basophils % 0.5 %; Eosinophils # 0.1 K/mcL (0.0-0.6); Eosinophils % 1.3 %; Hematocrit 29.4 % (37.5-50.1); Immature Granulocytes % 0.2 % (0-4); Lymphocytes # 0.9 K/mcL (0.6-4.6); Lymphocytes % 9.1 %; Mean Corpuscular HGB Conc 27.2 g/dL (31.6-35.5); Mean Corpuscular Hemoglobin 26.4 pg (28.0-33.3); Mean Platelet Volume 9.6 fL (9.4-12.4); Monocytes # 0.6 K/mcL (0.0-1.3); Monocytes % 5.5 %; Neutrophils # 8.3 K/mcL (1.6-8.9); Platelet Count 300 K/mcL (140-400); Red Blood Count 3.03 M/mcL (4.19-5.50); Red Cell Distribution Width 16.2 % (11.5-14.5); Segmented Neutrophils % 83.4 %
[2021-02-13 08:36] LABS: Calcium 9.4 mg/dL (8.6-10.3); Potassium 3.8 mEq/L (3.5-5.1)
[2021-02-13] MEDS: Fenofibrate 54 MG TABLET PO SCH (10:11)
[2021-02-13] MEDS: Aspirin 81 MG TAB.CHEW PO SCH (10:11)
[2021-02-13] MEDS: Lactobacillus 1 EACH CAP.SPRINK PO SCH ×2 (10:11→20:25)
[2021-02-13] MEDS: Cyanocobalamin (B-12) 1,000 MCG TABLET PO SCH (10:11)
[2021-02-13] MEDS: Metoprolol XL (24 HR) Succ 50 MG TAB.ER.24H PO SCH (10:12)
[2021-02-13] MEDS: Gabapentin 300 MG CAPSULE PO SCH ×3 (10:12→20:26)
[2021-02-13] MEDS: Apixaban 5 MG TABLET PO SCH ×2 (10:12→20:25)
[2021-02-13] MEDS: BuPROPion XL (24 HR) 150 MG TABLET PO SCH (10:12)
[2021-02-13] MEDS: DilTIAZem CD (24hr) 120 MG CAP.ER.24H PO SCH (10:12)
[2021-02-13] MEDS: JARDIANCE 10 MG PO SCH (10:16)
[2021-02-13] MEDS: Torsemide 20 MG TABLET PO SCH ×2 (10:16→20:25)
[2021-02-13] MEDS: Budesonide/Formoterol 160/4.5 1 PUFF INH IH SCH ×2 (10:46→21:57)
[2021-02-13] MEDS ORDERED: Torsemide 20 MG TABLET PO SCH (21:00)
[2021-02-14] MEDS: Levalbuterol Neb 0.63 MG/3 ML IH SCH ×3 (04:14→17:41)
[2021-02-14 08:15] LABS: Basophils # 0.1 K/mcL (0.0-0.2); Basophils % 0.6 %; Eosinophils # 0.1 K/mcL (0.0-0.6); Eosinophils % 1.2 %; Hematocrit 29.9 % (37.5-50.1); Hemoglobin 8.1 g/dL (12.9-16.9); Immature Granulocytes % 0.3 % (0-4); Lymphocytes % 8.8 %; Mean Corpuscular HGB Conc 27.1 g/dL (31.6-35.5); Mean Corpuscular Hemoglobin 26.5 pg (28.0-33.3); Mean Corpuscular Volume 97.7 fL (83.0-100.0); Monocytes # 0.5 K/mcL (0.0-1.3); Monocytes % 4.8 %; Neutrophils # 9.3 K/mcL (1.6-8.9); Nucleated Red Blood Cells 0.2 /100 WBC (0); Platelet Count 307 K/mcL (140-400); Red Blood Count 3.06 M/mcL (4.19-5.50); Red Cell Distribution Width 16.2 % (11.5-14.5); Segmented Neutrophils % 84.3 %; White Blood Count 11.1 K/mcL (4.3-11.1)
[2021-02-14 08:27] LABS: Calcium 9.5 mg/dL (8.6-10.3); Magnesium 2.3 mg/dL (1.6-2.6); Potassium 3.7 mEq/L (3.5-5.1)
[2021-02-14 09:22] LABS: Hypochromasia Present (Not Present); Platelet Estimate Normal (Normal)
[2021-02-14] MEDS: Lactobacillus 1 EACH CAP.SPRINK PO SCH ×2 (09:57→20:55)
[2021-02-14] MEDS: BuPROPion XL (24 HR) 150 MG TABLET PO SCH (09:57)
[2021-02-14] MEDS: Torsemide 20 MG TABLET PO SCH ×2 (09:57→20:56)
[2021-02-14] MEDS: Fenofibrate 54 MG TABLET PO SCH (09:57)
[2021-02-14] MEDS: Metoprolol XL (24 HR) Succ 50 MG TAB.ER.24H PO SCH (09:57)
[2021-02-14] MEDS: Aspirin 81 MG TAB.CHEW PO SCH (09:57)
[2021-02-14] MEDS: Cyanocobalamin (B-12) 1,000 MCG TABLET PO SCH (09:57)
[2021-02-14] MEDS: DilTIAZem CD (24hr) 120 MG CAP.ER.24H PO SCH (09:57)
[2021-02-14] MEDS: Apixaban 5 MG TABLET PO SCH ×2 (09:57→20:56)
[2021-02-14] MEDS: Gabapentin 300 MG CAPSULE PO SCH ×3 (09:57→20:56)
[2021-02-14] MEDS: JARDIANCE 10 MG PO SCH (10:02)
[2021-02-14] MEDS: Budesonide/Formoterol 160/4.5 1 PUFF INH IH SCH ×3 (10:50→21:35)
[2021-02-14 14:58] LABS: ABG Base Excess 5 mEq/L (-2 to 3); ABG HCO3 35 mEq/L (21-27); ABG Oxygen Saturation 82 % (95-98); ABG PCO2 87 mmHg (35-45); ABG PH 7.21 pH Units (7.32-7.45); ABG PO2 59 mmHg (85-104); ABG TCO2 38 mEq/L (20-26)
[2021-02-14 16:29] LABS: ABG Base Excess 6 mEq/L (-2 to 3); ABG HCO3 35 mEq/L (21-27); ABG Oxygen Saturation 91 % (95-98); ABG PCO2 77 mmHg (35-45); ABG PH 7.26 pH Units (7.32-7.45); ABG PO2 74 mmHg (85-104); ABG TCO2 37 mEq/L (20-26); Blood Gas Modality BiLevel
[2021-02-14 18:19] LABS: ABG Base Excess 4 mEq/L (-2 to 3); ABG HCO3 32 mEq/L (21-27); ABG Oxygen Saturation 70 % (95-98); ABG PCO2 71 mmHg (35-45); ABG PH 7.27 pH Units (7.32-7.45); ABG PO2 43 mmHg (85-104); ABG TCO2 35 mEq/L (20-26)
[2021-02-14] MEDS: Levalbuterol 1 PUFF INHALER IH SCH (21:36)
[2021-02-15] MEDS: Levalbuterol 1 PUFF INHALER IH SCH ×4 (04:35→22:47)
[2021-02-15 06:26] LABS: ABG Base Excess 8 mEq/L (-2 to 3); ABG HCO3 37 mEq/L (21-27); ABG Oxygen Saturation 75 % (95-98); ABG PCO2 80 mmHg (35-45); ABG PH 7.27 pH Units (7.32-7.45); ABG PO2 48 mmHg (85-104); ABG TCO2 39 mEq/L (20-26)
[2021-02-15 08:20] LABS: Hematocrit 29.7 % (37.5-50.1); Hemoglobin 8.1 g/dL (12.9-16.9); Mean Corpuscular HGB Conc 27.3 g/dL (31.6-35.5); Mean Corpuscular Hemoglobin 26.8 pg (28.0-33.3); Mean Corpuscular Volume 98.3 fL (83.0-100.0); Mean Platelet Volume 9.6 fL (9.4-12.4); Platelet Count 262 K/mcL (140-400); Red Blood Count 3.02 M/mcL (4.19-5.50); Red Cell Distribution Width 16.5 % (11.5-14.5); White Blood Count 9.9 K/mcL (4.3-11.1)
[2021-02-15 08:41] LABS: Calcium 9.6 mg/dL (8.6-10.3); Magnesium 2.4 mg/dL (1.6-2.6)
[2021-02-15] MEDS: Lactobacillus 1 EACH CAP.SPRINK PO SCH ×2 (08:50→19:33)
[2021-02-15] MEDS: Fenofibrate 54 MG TABLET PO SCH (08:50)
[2021-02-15] MEDS: Aspirin 81 MG TAB.CHEW PO SCH (08:50)
[2021-02-15] MEDS: Apixaban 5 MG TABLET PO SCH ×2 (08:51→19:32)
[2021-02-15] MEDS: Torsemide 20 MG TABLET PO SCH ×2 (08:51→19:32)
[2021-02-15] MEDS: DilTIAZem CD (24hr) 120 MG CAP.ER.24H PO SCH (08:51)
[2021-02-15] MEDS: Cyanocobalamin (B-12) 1,000 MCG TABLET PO SCH (08:51)
[2021-02-15] MEDS: BuPROPion XL (24 HR) 150 MG TABLET PO SCH (08:51)
[2021-02-15] MEDS: Gabapentin 300 MG CAPSULE PO SCH ×3 (08:51→19:32)
[2021-02-15] MEDS: Metoprolol XL (24 HR) Succ 50 MG TAB.ER.24H PO SCH (08:51)
[2021-02-15] MEDS: JARDIANCE 10 MG PO SCH (08:58)
[2021-02-15] MEDS: Budesonide/Formoterol 160/4.5 1 PUFF INH IH SCH ×2 (10:16→22:47)
[2021-02-15 17:11] LABS: ABG Base Excess 7 mEq/L (-2 to 3); ABG HCO3 35 mEq/L (21-27); ABG Oxygen Saturation 91 % (95-98); ABG PCO2 78 mmHg (35-45); ABG PH 7.26 pH Units (7.32-7.45); ABG PO2 72 mmHg (85-104); ABG TCO2 38 mEq/L (20-26)
[2021-02-15] MEDS ORDERED: *HR* LORazepam Oral Conc 2 MG/ML PO PRN (20:00)
[2021-02-16] MEDS: Levalbuterol 1 PUFF INHALER IH SCH ×4 (03:57→22:07)
[2021-02-16] MEDS: Metoprolol XL (24 HR) Succ 50 MG TAB.ER.24H PO SCH (08:10)
[2021-02-16] MEDS: Lactobacillus 1 EACH CAP.SPRINK PO SCH ×2 (08:10→19:46)
[2021-02-16] MEDS: Torsemide 20 MG TABLET PO SCH ×2 (08:12→19:47)
[2021-02-16] MEDS: BuPROPion XL (24 HR) 150 MG TABLET PO SCH (08:12)
[2021-02-16] MEDS: Cyanocobalamin (B-12) 1,000 MCG TABLET PO SCH (08:12)
[2021-02-16] MEDS: Aspirin 81 MG TAB.CHEW PO SCH (08:13)
[2021-02-16] MEDS: Fenofibrate 54 MG TABLET PO SCH (08:13)
[2021-02-16] MEDS: Gabapentin 300 MG CAPSULE PO SCH ×3 (08:13→19:46)
[2021-02-16] MEDS: Apixaban 5 MG TABLET PO SCH ×2 (08:13→19:47)
[2021-02-16] MEDS: DilTIAZem CD (24hr) 120 MG CAP.ER.24H PO SCH (08:14)
[2021-02-16] MEDS: JARDIANCE 10 MG PO SCH (08:16)
[2021-02-16] MEDS: Budesonide/Formoterol 160/4.5 1 PUFF INH IH SCH ×2 (09:36→22:07)
[2021-02-17] MEDS: Levalbuterol 1 PUFF INHALER IH SCH ×3 (04:37→15:47)
[2021-02-17 06:48] VITALS: BP 104/51; PULSE 84; TEMP 98.1
[2021-02-17 06:50] LABS: Basophils % 0.2 %; Eosinophils # 0.1 K/mcL (0.0-0.6); Eosinophils % 1.2 %; Hematocrit 27.2 % (37.5-50.1); Hemoglobin 7.4 g/dL (12.9-16.9); Immature Granulocytes % 0.4 % (0-4); Lymphocytes # 0.8 K/mcL (0.6-4.6); Lymphocytes % 8.2 %; Mean Corpuscular HGB Conc 27.2 g/dL (31.6-35.5); Mean Corpuscular Hemoglobin 26.7 pg (28.0-33.3); Mean Corpuscular Volume 98.2 fL (83.0-100.0); Mean Platelet Volume 9.3 fL (9.4-12.4); Monocytes # 0.5 K/mcL (0.0-1.3); Monocytes % 4.8 %; Nucleated Red Blood Cells 0.3 /100 WBC (0); Platelet Count 255 K/mcL (140-400); Red Blood Count 2.77 M/mcL (4.19-5.50); Red Cell Distribution Width 16.4 % (11.5-14.5); Segmented Neutrophils % 85.2 %; White Blood Count 9.4 K/mcL (4.3-11.1)
[2021-02-17 07:14] LABS: Calcium 9.1 mg/dL (8.6-10.3); Magnesium 2.3 mg/dL (1.6-2.6); Potassium 4.3 mEq/L (3.5-5.1)
[2021-02-17] MEDS: Apixaban 5 MG TABLET PO SCH (07:29)
[2021-02-17] MEDS: Fenofibrate 54 MG TABLET PO SCH (07:29)
[2021-02-17] MEDS: BuPROPion XL (24 HR) 150 MG TABLET PO SCH (07:29)
[2021-02-17] MEDS: DilTIAZem CD (24hr) 120 MG CAP.ER.24H PO SCH (07:29)
[2021-02-17] MEDS: Gabapentin 300 MG CAPSULE PO SCH ×2 (07:29→14:36)
[2021-02-17] MEDS: Lactobacillus 1 EACH CAP.SPRINK PO SCH (07:29)
[2021-02-17] MEDS: Aspirin 81 MG TAB.CHEW PO SCH (07:29)
[2021-02-17] MEDS: Cyanocobalamin (B-12) 1,000 MCG TABLET PO SCH (07:29)
[2021-02-17] MEDS: Torsemide 20 MG TABLET PO SCH (07:29)
[2021-02-17] MEDS: Metoprolol XL (24 HR) Succ 50 MG TAB.ER.24H PO SCH (07:29)
[2021-02-17] MEDS: JARDIANCE 10 MG PO SCH (07:30)
[2021-02-17 07:35] LABS: Hypochromasia Present (Not Present); Platelet Estimate Normal (Normal)
[2021-02-17] MEDS: Budesonide/Formoterol 160/4.5 1 PUFF INH IH SCH (09:53)
[2021-02-17 09:56] VITALS: RESP 16; O2SAT 97
== END 2021-02-17 15:33 | disposition hospice, home (50) | DRG 291 ==
LOC: INPPIK 07:50 → EMEROOPIK 07:50 → INPPIK 11:25
PROVIDERS: ADMIT Family Medicine; ATTEND Family Medicine